=== PATIENT | male | born 1985 | race Caucasian/White ===

== ENCOUNTER 2017-08-28 20:46 | Emergency (ER) | payer BC ==
--- OUTSIDE RECORDS SUMMARY | 2017-08-28 20:48 | XMS REPORT ---
:1985 Author Organization eClinicalWorks Care Team Providers Name Role Phone Daisy Dubon Provider Role Unavailable Allergies, Adverse Reactions, Alerts Substance Reaction Event Type N.K.D.A. Info Not Available Non Drug Allergy Problems Problem Type Condition Code Onset Dates Condition Status Assessment History of kidney stones Z87.442 Active Assessment Hypertension, unspecified type I10 Active Assessment Testicular pain N50.819 Active Assessment Otalgia, left ear H92.02 Active Assessment Bipolar affective disorder, F31.9 Active remission status unspecified Problem Hypertension, unspecified type I10 Active Problem Calculus of kidney and ureter N20.2 Active Problem Bipolar affective disorder, F31.9 Active remission status unspecified Problem Bipolar affective disorder F31.9 Active Problem Acute serous otitis media H65.00 Active Problem Seasonal allergies J30.2 Active Problem Reflux esophagitis K21.0 Active Medications Medication Code Code Instructions Start End Status Dosage System Date Date Amoxicillin [facility] 98846014036 875 MG Orally Active 1 tablet Twice a day Prilosec [facility] 06708103695 2.5 MG Orally Active 4 packets Once a day Bentyl [facility] 88959522788 10 MG Orally Active 2 capsules Four times a day Abilify [facility] 18254088334 10 MG Orally Active 1 tablet in Once a day evening Zyrtec Allergy [facility] 54512647355 10 MG Orally Active 1 tablet Once a day Vitamin D3 [facility] 49553809188 2000 UNIT Active 1 capsule Orally Once a day Lamictal [facility] 17387374572 200 MG Orally Active 1 tablet Twice a day Protonix [facility] 70865903961 40 MG Orally Active 1 tablet Once a day Lisinopril [facility] 90650889744 10 MG Orally Active 1 tablet Once daily Auralgan ND 0 Active not defined Results Name Result Date Reference Range Unit Abnormality Flag Urine Dip Stick ----SP. Gr 1.030 20170525 ----pH 5.5 20170525 ----Ketone Negative 20170525 ----Glucose Negative 20170525 ----Blood Negative 20170525 ----Protein Trace 20170525 ----Nitrite Negative 20170525 ----Leukocytes Negative 20170525 Summary Purpose eClinicalWorks Submission
--- OUTSIDE RECORDS SUMMARY | 2017-08-28 20:48 | XMS REPORT | Clinical Summary ---
:1985 Author Organization [facility] Address [address] [place] [address] Care Team Providers Name Role Phone Daisy Dubon MD Primary Care Provider Allergies Not on File Current Medications Not on file Active Problems Not on file Encounters Date Type Specialty Care Team Description 09/15/2016 Hospital Encounter Radiology Daisy Gomez MD Kidney stones 09/15/2016 Transcribe Orders Access Daisy Gomez MD Kidney stones ( Primary Dx) after 08/27/2016 Social History Tobacco Use Types Packs/Day Years Used Date Never Assessed Sex Assigned at Date Recorded Not on file Last Filed Vital Signs Not on file Plan of Treatment Health Maintenance Due Date Last Done Comments INFLUENZA VACCINE 09/12/2017 Procedures Procedure Name Priority Date/Time Associated Diagnosis Comments XR KUB KIDNEY Routine 09/15/2016 11:55 AM Kidney stones Results for this URETER BLADDER CDT procedure are in the results section. after 08/27/2016 Results XR Kub Kidney Ureter Bladder (09/15/2016 11:55 AM) Narrative Performed At EXAMINATION:XR KUB KIDNEY URETER BLADDER RADIANT CLINICAL HISTORY: 31 years 1985 N20.0 Calculus of kidney, N20.0 COMPARISON:None. IMPRESSION: 1.No definite renal stones appreciated on plain film radiograph. There are several small calcifications over the left pelvis, likely phleboliths. Please correlate with symptomatology. 2.Bowel gas pattern is nonobstructive. Cholecystectomy clips. Likely additional postsurgical changes right lower quadrant. 3.No concerning osseous abnormalities. [facility]-[id number] Procedure Note Interface, Radiology Results Incoming - 09/15/2016 12:11 PM CDT EXAMINATION: XR KUB KIDNEY URETER BLADDER CLINICAL HISTORY: 31 years 1985 N20.0 Calculus of kidney, N20.0 COMPARISON: None. IMPRESSION: 1. No definite renal stones appreciated on plain film radiograph. There are several small calcifications over the left pelvis, likely phleboliths. Please correlate with symptomatology. 2. Bowel gas pattern is nonobstructive. Cholecystectomy clips. Likely additional postsurgical changes right lower quadrant. 3. No concerning osseous abnormalities. [facility]-[id number] Performing Organization Address City/State/Zipcode Phone Number [facility] [address] [place] [address] after 08/27/2016 Insurance Payer Benefit Plan / Group Subscriber ID Type Phone Address [facility] CHOICE/CHOICE + xxxxxxxxx HMO/PPO Home: [address] [phone] [place] [id number]
[2017-08-28] MEDS ORDERED: KETOROLAC 30 MG/ML INJ ONE (21:28)
[2017-08-28] MEDS ORDERED: ONDANSETRON 4 MG/2 ML VIAL ONE (21:28)
[2017-08-28] MEDS ORDERED: NA CHLORIDE 0.9% 1,000 ML ONE (21:29)
[2017-08-28] MEDS ORDERED: FAMOTIDINE 20 MG/2 ML VIAL IV ONE (21:52)
[2017-08-28] MEDS ORDERED: MEPERIDINE HCL 25 MG/0.5 ML ONE (21:52)
[2017-08-28 22:03] LABS: Absolute Lymphocytes (CBC) 1.8 K/uL (0.7-4.9); Absolute Monocytes 0.7 K/uL (0.1-1.3); Absolute Neutrophil 10.8 K/uL (1.8-8.0); Albumin 4.1 g/dL (3.4-5.0); Basophils % 0.3 % (0-1.3); Bilirubin Direct 0.1 mg/dL (0-0.2); Bilirubin Total 0.5 mg/dL (0.2-1.0); Eosinophils % 1.6 % (0-4.4); Hematocrit 44.5 % (39.6-49.0); Lymphocytes % 13.4 % (15.3-44.8); MCH 28.8 pg (27.0-35.0); MCV 84.8 fL (80-100); MPV 6.9 fL (7.6-11.3); Monocytes % 5.4 % (3.3-12.3); Potassium 3.8 mmol/L (3.5-5.1); Protein, Total 7.7 g/dL (6.4-8.2); RBC Red Blood Cell Count 5.25 M/uL (4.33-5.43)
[2017-08-28 22:20] LABS: Urine Blood NEGATIVE (NEG); Urine Glucose NEGATIVE (NEG); Urine Protein 1+ (NEG); Urine Specific Gravity >1.030 (1.005-1.030); Urine pH 6.5 (5.0-7.0)
--- NOTE | 2017-08-28 23:45 | EDPHYS ---
Physician Documentation [facility] Name: Roland Cueto Jr Age: 32 yrs Sex: Male : 1985 Arrival Date: 08/28/2017 Time: 20:47 Bed 17 Private MD: Daisy Dubon ED Physician Trino Barry HPI: 08/28 22:14 This 32 yrs old Male presents to ER via Ambulatory with complaints of pm1 Abdominal Pain. 22:14 The patient presents with abdominal pain in the epigastric area. Onset: The pm1 symptoms/episode began/occurred today, at 16:30. The symptoms do not radiate. Associated signs and symptoms: Pertinent positives: nausea and vomiting, Pertinent negatives: chest pain, diarrhea, dysuria, fever, shortness of breath, testicular pain. The symptoms are described as dull, sharp. Modifying factors: The symptoms are alleviated by nothing, the symptoms are aggravated by food, Water. Severity of pain: in the emergency department the pain is actually worse. The patient has not experienced similar symptoms in the past. The patient has not recently seen a physician. Historical: - Allergies: 21:05 Morphine; bb - Home Meds: 21:11 Lamictal 400 mg daily Oral [Active]; bb - PMHx: 21:05 Bipolar disorder; Gastroenteritis; Kidney stones; bb - PSHx: 21:05 Cholecystectomy; Appendectomy; bb - Immunization history:: Adult Immunizations up to date. - Social history:: Smoking status: Patient/guardian denies using tobacco, Patient/guardian denies using alcohol, street drugs. - Ebola Screening: : No symptoms or risks identified at this time. ROS: 22:14 Constitutional: Negative for fever, chills, and weight loss, Eyes: Negative for injury, pm1 pain, redness, and discharge, ENT: Negative for injury, pain, and discharge, Neck: Negative for injury, pain, and swelling, Cardiovascular: Negative for chest pain, palpitations, and edema, Respiratory: Negative for shortness of breath, cough, wheezing, and pleuritic chest pain. 22:14 Back: Negative for injury and pain, : Negative for injury, bleeding, discharge, and swelling, MS/Extremity: Negative for injury and deformity, Skin: Negative for injury, rash, and discoloration, Neuro: Negative for headache, weakness, numbness, tingling, and seizure. 22:14 Abdomen/GI: Positive for abdominal pain, nausea and vomiting, Negative for diarrhea, constipation. Exam: 22:14 Constitutional: This is a well developed, well nourished patient who is awake, alert, pm1 and in no acute distress. Head/Face: Normocephalic, atraumatic. Neck: Trachea midline, no thyromegaly or masses palpated, and no cervical lymphadenopathy. Supple, full range of motion without nuchal rigidity, or vertebral point tenderness. No Meningismus. Chest/axilla: Normal chest wall appearance and motion. Nontender with no deformity. No lesions are appreciated. Cardiovascular: Regular rate and rhythm with a normal S1 and S2. No gallops, murmurs, or rubs. Normal PMI, no JVD. No pulse deficits. Respiratory: Lungs have equal breath sounds bilaterally, clear to auscultation and percussion. No rales, rhonchi or wheezes noted. No increased work of breathing, no retractions or nasal flaring. 22:14 Back: No spinal tenderness. No costovertebral tenderness. Full range of motion. Skin: Warm, dry with normal turgor. Normal color with no rashes, no lesions, and no evidence of cellulitis. MS/ Extremity: Pulses equal, no cyanosis. Neurovascular intact. Full, normal range of motion. 22:14 Abdomen/GI: Inspection: abdomen appears normal, Bowel sounds: normal, Palpation: soft, mild abdominal tenderness, in the epigastric area, mass, is not appreciated, rebound tenderness, is not appreciated. 22:14 Neuro: Orientation: is normal, Motor: is normal, moves all fours. Vital Signs: 21:05 BP 137 / 96; Pulse 85; Resp 16 S; Temp 98(O); Pulse Ox 97% on R/A; Weight 102.06 kg bb (R); Height 5 ft. 11 in. (180.34 cm) (R); Pain 9/10; 21:58 BP 135 / 86; Pulse 69; Resp 16; Pulse Ox 96% on R/A; Pain 2/10; ak1 23:19 BP 129 / 76; Pulse 76; Resp 16; Pulse Ox 98% on R/A; Pain 2/10; ak1 21:05 Body Mass Index 31.38 (102.06 kg, 180.34 cm) bb MDM: 20:53 Patient medically screened. pm1 23:39 Data reviewed: vital signs. Data interpreted: Pulse oximetry: on room air is 98 %. pm1 Interpretation: normal. 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 08/28 21:24 Order name: Basic Metabolic Panel; Complete Time: 23:21 pm1 08/28 21:24 Order name: CBC with Diff; Complete Time: 23:21 pm1 08/28 21:24 Order name: Hepatic Function; Complete Time: 23:21 pm1 08/28 21:24 Order name: Lipase; Complete Time: 23:21 pm1 08/28 21:59 Order name: Urine Dipstick--Ancillary (enter results) ks 08/28 22:00 Order name: Urine Dipstick-Ancillary; Complete Time: 23:21 [facility] 08/28 21:24 Order name: IV Saline Lock; Complete Time: 21:37 pm1 08/28 21:44 Order name: CT Abd/Pelvis - W/Contrast: IV contrast only [facility] 08/28 21:24 Order name: Labs collected and sent; Complete Time: 21:37 pm1 08/28 21:24 Order name: Urine Dipstick-Ancillary (obtain specimen); Complete Time: 23:09 pm1 Administered Medications: 21:36 Drug: Zofran 4 mg Route: IVP; Site: right antecubital; ak1 21:46 Follow up: Response: No adverse reaction ak1 21:37 Drug: TORadol 30 mg Route: IVP; Site: right antecubital; ak1 21:46 Follow up: Response: No adverse reaction ak1 21:37 Drug: NS 0.9% 1000 ml Route: IV; Rate: 1000 ml; Site: right antecubital; ak1 22:23 Follow up: IV Status: Completed infusion ak1 23:52 Follow up: IV Status: Completed infusion ak1 21:52 Drug: Pepcid 20 mg Route: IVP; Site: right antecubital; ak1 22:22 Follow up: Response: No adverse reaction ak1 21:52 Drug: Demerol 25 mg Route: IVP; Site: right antecubital; ak1 22:22 Follow up: Response: No adverse reaction ak1 23:48 Drug: GI Cocktail without - (Maalox Suspension 30 ml, Lidocaine Liquid 2 % 15 ak1 ml) Route: PO; 23:48 Follow up: Response: No adverse reaction ak1 Disposition: 08/29 00:21 Co-signature as Attending Physician, Trino Barry MD. pkcris Disposition: 08/28/17 23:44 Discharged to Home. Impression: Unspecified abdominal pain, Nausea and vomiting. - Condition is Stable. - Discharge Instructions: Abdominal Pain, Adult, Nausea and Vomiting. - Prescriptions for Bentyl 20 mg Oral Tablet - take 1 tablet by ORAL route every 6 hours As needed; 20 tablet. Pepcid 20 mg Oral Tablet - take 1 tablet by ORAL route every 12 hours for 10 days; 20 tablet. Zofran 4 mg Oral Tablet - take 1 tablet by ORAL route every 12 hours As needed; 20 tablet. - Medication Reconciliation Form, Thank You Letter, Antibiotic Education, Prescription Opioid Use form. - Follow up: Emergency Department; When: As needed; Reason: Worsening of condition. Follow up: Luis Doherty; When: 2 - 3 days; Reason: Recheck today's complaints, Continuance of care, Re-evaluation by your physician. - Problem is new. - Symptoms have improved. Signatures: Dispatcher [employer] EDTrino Davis MD MD pkl Samira Zaragoza RN Darlene Maxwell RN RN lp1 Cheryl Mullins RN RN ak1 Karl Meyer, WATER VALVE MECHANIC WATER VALVE MECHANIC pm1 Corrections: (The following items were deleted from the chart) 00:07 08/28 23:44 08/28/2017 23:44 Discharged to Home. Impression: Unspecified abdominal lp1 pain; Nausea and vomiting. Condition is Stable. Forms are Medication Reconciliation Form, Thank You Letter, Antibiotic Education, Prescription Opioid Use. Follow up: Emergency Department; When: As needed; Reason: Worsening of condition. Follow up: Luis Doherty; When: 2 - 3 days; Reason: Recheck today's complaints, Continuance of care, Re-evaluation by your physician. Problem is new. Symptoms have improved. pm1
--- NOTE | 2017-08-28 23:45 | ER ---
Nurse's Notes [facility] Name: Roland Cueto Jr Age: 32 yrs Sex: Male : 1985 Arrival Date: 08/28/2017 Time: 20:47 Bed 17 Private MD: Daisy Dubon Diagnosis: Unspecified abdominal pain;Nausea and vomiting Presentation: 08/28 21:02 Presenting complaint: Patient states: at approx 1630 today he started feeling bb epigastric pain which was sharp at first then went away now has dull pain intermittently and is vomiting denies diarrhea or fever. Transition of care: patient was not received from another setting of care. Onset of symptoms was August 28, 2017 at 16:30. Risk Assessment: Do you want to hurt yourself or someone else? Patient reports no desire to harm self or others. Initial Sepsis Screen: Does the patient meet any 2 criteria? No. Patient's initial sepsis screen is negative. Does the patient have a suspected source of infection? No. Patient's initial sepsis screen is negative. Care prior to arrival: None. 21:02 Method Of Arrival: Ambulatory bb 21:02 Acuity: ALEX 3 bb Historical: - Allergies: 21:05 Morphine; bb - Home Meds: 21:11 Lamictal 400 mg daily Oral [Active]; bb - PMHx: 21:05 Bipolar disorder; Gastroenteritis; Kidney stones; bb - PSHx: 21:05 Cholecystectomy; Appendectomy; bb - Immunization history:: Adult Immunizations up to date. - Social history:: Smoking status: Patient/guardian denies using tobacco, Patient/guardian denies using alcohol, street drugs. - Ebola Screening: : No symptoms or risks identified at this time. Screenin:22 Abuse screen: Denies threats or abuse. Denies injuries from another. Nutritional ak1 screening: No deficits noted. Tuberculosis screening: No symptoms or risk factors identified. Fall Risk None identified. Assessment: 21:22 General: Appears uncomfortable, Behavior is calm, cooperative. Pain: Complains of pain ak1 in epigastric area. Neuro: No deficits noted. Cardiovascular: No deficits noted. Respiratory: No deficits noted. GI: Bowel sounds present X 4 quads. Abd is soft X 4 quads Abdomen is tender to palpation in epigastric area. : No signs and/or symptoms were reported regarding the genitourinary system. EENT: No signs and/or symptoms were reported regarding the EENT system. Derm: No signs and/or symptoms reported regarding the dermatologic system. Musculoskeletal: No signs and/or symptoms reported regarding the musculoskeletal system. 23:23 Reassessment: Patient appears in no apparent distress at this time. Patient and/or ak1 family updated on plan of care and expected duration. Pain level reassessed. Patient is alert, oriented x 3, equal unlabored respirations, skin warm/dry/pink. Patient states symptoms have improved. Vital Signs: 21:05 BP 137 / 96; Pulse 85; Resp 16 S; Temp 98(O); Pulse Ox 97% on R/A; Weight 102.06 kg bb (R); Height 5 ft. 11 in. (180.34 cm) (R); Pain 9/10; 21:58 BP 135 / 86; Pulse 69; Resp 16; Pulse Ox 96% on R/A; Pain 2/10; ak1 23:19 BP 129 / 76; Pulse 76; Resp 16; Pulse Ox 98% on R/A; Pain 2/10; ak1 21:05 Body Mass Index 31.38 (102.06 kg, 180.34 cm) ED Course: 20:47 Patient arrived in ED. ds1 20:47 Gumaro Lamb MD is Private Physician. ds1 20:47 Daisy Dubon MD is Private Physician. ds1 20:53 Karl Meyer NP is PHCP. pm1 20:53 Trino Barry MD is Attending Physician. pm1 20:56 Cheryl Mullins, FABY is Primary Nurse. ak1 21:04 Triage completed. bb 21:05 Arm band placed on Patient placed in an exam room, on a stretcher, on pulse oximetry. bb Family accompanied patient. 21:22 Patient has correct armband on for positive identification. Bed in low position. Call ak1 light in reach. Side rails up X 1. Adult w/ patient. Pulse ox on. NIBP on. 21:37 Inserted saline lock: 20 gauge in right antecubital area, using aseptic technique. ak1 Blood collected. 21:47 Radiology exam delayed due to lab results not completed at this time. (BUN/Creatinine). nj 22:01 No provider procedures requiring assistance completed. ak1 22:[address] via wheelchair. nj 22:32 CT completed. Patient tolerated procedure well. Patient moved back from CT. nj 22:35 CT Abd/Pelvis - W/Contrast: IV contrast only In Process Unspecified. EDMS 23:44 Luis Doherty MD is Referral Physician. pm1 23:50 IV discontinued, intact, bleeding controlled, No redness/swelling at site. ak1 Administered Medications: 21:36 Drug: Zofran 4 mg Route: IVP; Site: right antecubital; ak1 21:46 Follow up: Response: No adverse reaction ak1 21:37 Drug: TORadol 30 mg Route: IVP; Site: right antecubital; ak1 21:46 Follow up: Response: No adverse reaction ak1 21:37 Drug: NS 0.9% 1000 ml Route: IV; Rate: 1000 ml; Site: right antecubital; ak1 22:23 Follow up: IV Status: Completed infusion ak1 23:52 Follow up: IV Status: Completed infusion ak1 21:52 Drug: Pepcid 20 mg Route: IVP; Site: right antecubital; ak1 22:22 Follow up: Response: No adverse reaction ak1 21:52 Drug: Demerol 25 mg Route: IVP; Site: right antecubital; ak1 22:22 Follow up: Response: No adverse reaction ak1 23:48 Drug: GI Cocktail without - (Maalox Suspension 30 ml, Lidocaine Liquid 2 % 15 ak1 ml) Route: PO; 23:48 Follow up: Response: No adverse reaction ak1 Outcome: 23:44 Discharge ordered by . pm1 08/29 00:06 Discharged to home ambulatory, with significant other. lp1 Condition: good Discharge instructions given to patient, Instructed on discharge instructions, follow up and referral plans. medication usage, Demonstrated understanding of instructions, follow-up care, medications, Prescriptions given X 3. 00:07 Patient left the ED. lp1 Signatures: Dispatcher [employer] EDNH Celsa Beckett Samira Gibbs RN RN bb Pena, Laura, RN RN lp1 Cheryl Mullins RN RN ak1 Karl Meyer, PROCESS MANAGER PROCESS MANAGER pm1 Felix Moraes
[2017-08-28] MEDS ORDERED: MAGNE/ALUM HYDROXD 30 ML UCUP ONE (23:48)
[2017-08-28] MEDS ORDERED: LIDOCAINE VISCOUS 2% SOLN 15 ML UDC ONE (23:48)
[2017-08-29 00:13] VITALS: TEMP 98
[2017-08-29 00:15] VITALS: BP 129/76; O2SAT 98
--- NOTE | 2017-08-29 06:39 | RAD REPORT ---
EXAM DESCRIPTION: CT - Abdomen Pelvis W Contrast - 08/28/2017 10:35 pm CLINICAL HISTORY: Abdominal pain, epigastric pain, vomiting A preliminary written report was provided at the time of the study, and the report was reviewed prio r to final dictation. COMPARISON: CT study May 2015 TECHNIQUE: Biphasic, helical CT imaging of the abdomen and pelvis was performed following 100 ml non -ionic IV contrast. No oral contrast was given. All CT scans are performed using dose optimization technique as appropriate and may include automated exposure control or mA/KV adjustment according to patient size. FINDINGS: No suspicious findings in the lung bases. The liver, spleen, and pancreas show no suspicious findings. Cholecystectomy clips are present. No bi liary tree dilatation. Symmetric renal function is seen with no hydronephrosis or suspicious renal mass. No pyelonephritis o r acute renal parenchymal process. No urinary bladder abnormality. Bladder is contracted limiting ass essment. No gastric dilatation or gastric wall thickening. Stomach is fluid filled but not dilated. Wagner of t he gastric antrum are questionably edematous. A few minimally prominent small bowel loops are present in the upper abdomen. Minimal diverticulosis without diverticulitis. Clips in the right abdomen may be from prior appendectomy. No free air, free fluid or inflammatory stranding. No hernia, mass or bu lky lymphadenopathy. No adrenal abnormality. No suspicious bony findings. IMPRESSION: No obstruction, free air or surgically emergent finding. Minimal prominence of the gastric antrum and proximal small bowel loops could indicated nonspecific g astritis/ enteritis. No significant change from comparison.
== END 2017-08-29 00:07 | disposition home or self-care (01) ==
LOC: ER 20:46
DX: R11.2 Nausea with vomiting, unspecified (principal); Z88.5 Allergy status to narcotic agent
CPT/HCPCS: 36415; 74177; 80048; 80076; 81003; 83690; 85025; 96361; 96374; 96375; 99284; J2175; J2405; J7030; Q9967

== ENCOUNTER 2018-05-23 08:30 | Emergency (ER) | payer BC ==
--- OUTSIDE RECORDS SUMMARY | 2018-05-23 08:32 | XMS REPORT ---
[...] End Status Dosage System Date Date Amoxicillin [facility] 89926117269 875 MG Orally Active 1 tablet Twice a day Prilosec [facility] 44497534265 2.5 MG Orally Active 4 packets Once a day Bentyl [facility] 13383619757 10 MG Orally Active 2 capsules Four times a day Abilify [facility] 71224625184 10 MG Orally Active 1 tablet in Once a day evening Zyrtec Allergy [facility] 08213951246 10 MG Orally Active 1 tablet Once a day Vitamin D3 [facility] 00564338571 2000 UNIT Active 1 capsule Orally Once a day Lamictal [facility] 21510575675 200 MG Orally Active 1 tablet Twice a day Protonix [facility] 83810827122 40 MG Orally Active 1 tablet Once a day Lisinopril [facility] 98867710650 10 MG Orally Active 1 tablet Once daily Auralgan ND 0 Active not defined Results Name Result Date Reference Range Unit Abnormality Flag Urine Dip Stick ----SP. Gr 1.030 20170525 ----pH 5.5 20170525 ----Ketone Negative 20170525 ----Glucose Negative 20170525 ----Blood Negative 20170525 ----Protein Trace 20170525 ----Nitrite Negative 20170525 ----Leukocytes Negative 20170525 Summary Purpose eClinicalWorks Submission
--- OUTSIDE RECORDS SUMMARY | 2018-05-23 08:32 | XMS REPORT ---
:1985 Author Organization e[employer]Works Care Team Providers Name Role Phone Jagdish Daisy Provider Role Unavailable Allergies, Adverse Reactions, Alerts Substance Reaction Event Type N.K.D.A. Info Not Available Non Drug Allergy Problems Problem Type Condition Code Onset Dates Condition Status Assessment Bipolar affective disorder, F31.9 Active remission status unspecified Assessment Hypertension, unspecified type I10 Active Problem Hypertension, unspecified type I10 Active Problem Calculus of kidney and ureter N20.2 Active Problem Bipolar affective disorder, F31.9 Active remission status unspecified Problem Bipolar affective disorder F31.9 Active Problem Acute serous otitis media H65.00 Active Problem Seasonal allergies J30.2 Active Problem Reflux esophagitis K21.0 Active Medications Medication Code Code Instructions Start End Status Dosage System Date Date Lisinopril [facility] 89936135820 10 MG Orally Active 1 tablet Once daily Vitamin D3 [facility] 84173497398 2000 UNIT Active 1 capsule Orally Once a day Bentyl [facility] 56641315030 10 MG Orally Active 2 capsules Four times a day Amoxicillin [facility] 74252011943 875 MG Orally Active 1 tablet Twice a day Protonix [facility] 19726222325 40 MG Orally Active 1 tablet Once a day Prilosec [facility] 94242821193 2.5 MG Orally Active 4 packets Once a day Abilify [facility] 19198256376 10 MG Orally Active 1 tablet in Once a day evening Lamictal [facility] 82673360815 200 MG Orally Active 1 tablet Twice a day Auralgan ND 0 Active not defined Zyrtec Allergy [facility] 01170725526 10 MG Orally Active 1 tablet Once a day Results No Known Results Summary Purpose eClinicalWorks Submission
--- OUTSIDE RECORDS SUMMARY | 2018-05-23 08:32 | XMS REPORT | Clinical Summary ---
:1985 Author Organization [facility] Address [address] [place] [address] Care Team Providers Name Role Phone Daisy Dubon MD Primary Care Provider Allergies Not on File Medications Not on file Active Problems Not on file Social History Tobacco Use Types Packs/Day Years Used Date Never Assessed Sex Assigned at Date Recorded Not on file Job Start Date Occupation Industry Not on file Not on file Not on file Travel History Travel Start Travel End No recent travel history available. Last Filed Vital Signs Not on file Plan of Treatment Health Maintenance Due Date Last Done Comments INFLUENZA VACCINE 09/12/2018 Results Not on fileafter 05/22/2017 Insurance Payer Benefit Plan / Group Subscriber ID Type Phone Address [facility] CHOICE/CHOICE + xxxxxxxxx HMO/PPO Advance Directives Patient has advance care planning documents on file. For more information, please contact:[facility] [place] [address]
--- OUTSIDE RECORDS SUMMARY | 2018-05-23 08:32 | XMS REPORT ---
:1985 [facility] Address [address] [place] [address] [address] [place] [address] Care Team Providers Name Role Phone Unavailable Unavailable Unavailable Problems This patient has no known problems. Allergies, Adverse Reactions, Alerts This patient has no known allergies or adverse reactions. Medications This patient has no known medications.
--- OUTSIDE RECORDS SUMMARY | 2018-05-23 08:32 | XMS REPORT ---
:1985 Author Organization [employer] Care Team Providers Name Role Phone Daisy Dubon Provider Role Unavailable Allergies, Adverse Reactions, Alerts Substance Reaction Event Type N.K.D.A. Info Not Available Non Drug Allergy Problems Problem Type Condition Code Onset Dates Condition Status Assessment Bipolar affective disorder, F31.9 Active remission status unspecified Assessment Acute conjunctivitis of right eye, H10.31 Active unspecified acute conjunctivitis type Problem Hypertension, unspecified type I10 Active Problem Calculus of kidney and ureter N20.2 Active Problem Bipolar affective disorder, F31.9 Active remission status unspecified Problem Bipolar affective disorder F31.9 Active Problem Acute serous otitis media H65.00 Active Problem Seasonal allergies J30.2 Active Problem Reflux esophagitis K21.0 Active Medications Medication Code Code Instructions Start End Status Dosage System Date Date [facility] 20715885414 10 MG Orally Active 1 tablet in Once a day evening Lisinopril ND 30083421838 10 MG Orally Active 1 tablet Once daily Zyrtec Allergy ND 92311537841 10 MG Orally Active 1 tablet Once a day Prilosec [facility] 25124080403 2.5 MG Orally Active 4 packets Once a day Ciprofloxacin [facility] 26797308354 0.3 % Oct 05, Oct 12, Active as directed HCl Ophthalmic 2017 drops in affected eye q2h while awake for 2 days; then 2 drops q4h while awake for 5 days Amoxicillin ND 03083011044 875 MG Orally Active 1 tablet Twice a day Vitamin D3 ND 82979024146 2000 UNIT Active 1 capsule Orally Once a day Protonix ND 52160849701 40 MG Orally Active 1 tablet Once a day Lamictal ND 77442286221 200 MG Orally Active 1 tablet Twice a day Auralgan NDC 0 Active not defined Bentyl ND 02319411519 10 MG Orally Active 2 capsules Four times a day Results No Known Results Summary Purpose eClinicalWorks Submission
[2018-05-23] MEDS ORDERED: KETOROLAC 30 MG/ML INJ ONE (09:00)
[2018-05-23] MEDS ORDERED: ONDANSETRON 4 MG/2 ML VIAL ONE (09:00)
[2018-05-23] MEDS ORDERED: NA CHLORIDE 0.9% 1,000 ML ONE (09:00)
[2018-05-23 09:01] LABS: Absolute Lymphocytes (CBC) 1.6 K/uL (0.7-4.9); Absolute Monocytes 0.5 K/uL (0.1-1.3); Absolute Neutrophil 6.2 K/uL (1.8-8.0); Basophils % 0.4 % (0-1.3); Eosinophils % 3.5 % (0-4.4); Hematocrit 47.4 % (39.6-49.0); Lymphocytes % 18.5 % (15.3-44.8); MPV 6.9 fL (7.6-11.3); Monocytes % 5.6 % (3.3-12.3); RBC Red Blood Cell Count 5.67 M/uL (4.33-5.43)
[2018-05-23 09:17] LABS: ALT/SGPT 32 U/L (12-78); AST/SGOT 18 U/L (15-37); Albumin 3.9 g/dL (3.4-5.0); Alkaline Phosphatase 85 U/L (45-117); BUN Blood Urea Nitrogen 11 mg/dL (7-18); Bicarbonate 26 mmol/L (21-32); Bilirubin Direct 0.1 mg/dL (0-0.2); Bilirubin Total 0.6 mg/dL (0.2-1.0); Glucose Level 99 mg/dL (74-106); Lipase 92 U/L (73-393); Potassium 3.8 mmol/L (3.5-5.1); Protein, Total 7.6 g/dL (6.4-8.2); Sodium Level 142 mmol/L (136-145)
[2018-05-23] MEDS ORDERED: FENTANYL CITR 100 MCG/2 ML ONE (09:37)
[2018-05-23 09:41] LABS: Urine Blood NEGATIVE (NEG); Urine Glucose NEGATIVE (NEG); Urine Protein 1+ (NEG); Urine pH 5.5 (5.0-7.0)
[2018-05-23 09:45] LABS: Urine Bacteria NONE SEEN /HPF (NONE SEEN); Urine Culture Reflex Order NOT NEEDED; Urine Mucus MOD /HPF (NONE SEEN); Urine RBC <5 /HPF (NONE SEEN)
--- NOTE | 2018-05-23 09:47 | RAD REPORT ---
EXAM DESCRIPTION: CT - Stone Protocol - 05/23/2018 9:01 am CLINICAL HISTORY: Flank pain. FLANK PAIN COMPARISON: Abdomen Pelvis W Contrast dated 08/28/2017 TECHNIQUE: Axial images were obtained without oral or IV contrast. Lack of contrast limits solid org an and vascular assessment. The [id number] spans the entirety of the system partially obscuring uppermost abdomen and lung bases. Coronal reformatted images were obtained and reviewed. All CT scans are performed using dose optimization technique as appropriate and may include automated exposure control or mA/KV adjustment according to patient size. FINDINGS: The lower lung cespedes are clear. Imaged portions of the liver and spleen show no suspicious findings on non-contrast imaging. Cholecys tectomy The pancreas and adrenal glands are normal. No pathologic lymphadenopathy in the abdomen or pelvis. No urinary tract stones or obstructive uropathy. No bowel obstruction, free air, free fluid or abscess. Appendectomy. No significant bony abnormality. IMPRESSION: No urinary tract stones or obstructive uropathy.
--- NOTE | 2018-05-23 09:54 | ER ---
Nurse's Notes [facility] Name: Roland Cueto Jr Age: 33 yrs Sex: Male : 1985 Arrival Date: 05/23/2018 Time: 08:32 Bed 13 Private MD: Diagnosis: Unspecified abdominal pain;Diarrhea, unspecified Presentation: 05/23 08:37 Initial Sepsis Screen: Does the patient meet any 2 criteria? No. Patient's initial rb1 sepsis screen is negative. Does the patient have a suspected source of infection? No. Patient's initial sepsis screen is negative. 08:40 Presenting complaint: Patient states: RIGHT flank pain that radiates to RLQ, nausea, hb and diarrhea x 2 days. Transition of care: patient was not received from another setting of care. Onset of symptoms was May 22, 2018. Risk Assessment: Do you want to hurt yourself or someone else? Patient reports no desire to harm self or others. Care prior to arrival: None. 08:40 Method Of Arrival: Ambulatory hb 08:40 Acuity: ALEX 3 hb Historical: - Allergies: 08:42 Morphine; "makes me mean"; hb - Home Meds: 08:42 Lamictal 400 mg daily Oral [Active]; hb - PMHx: 08:42 Bipolar disorder; Gastroenteritis; Kidney stones; hb - PSHx: 08:42 Cholecystectomy; Appendectomy; hb - Immunization history:: Adult Immunizations up to date. - Social history:: Smoking status: Patient/guardian denies using tobacco. - Ebola Screening: : No symptoms or risks identified at this time. Screenin:43 Abuse screen: Denies threats or abuse. Denies injuries from another. Nutritional hb screening: No deficits noted. Tuberculosis screening: No symptoms or risk factors identified. Fall Risk None identified. Assessment: 08:37 General: Appears uncomfortable, Behavior is calm, cooperative, Denies fever. Pain: rb1 Complains of pain in right flank Pain radiates to right lower quadrant Pain currently is 10 out of 10 on a pain scale. Neuro: Level of Consciousness is awake, alert, obeys commands, Oriented to person, place, time, situation. Cardiovascular: Capillary refill < 3 seconds is brisk in bilateral fingers. Respiratory: Airway is patent Respiratory effort is even, unlabored, Respiratory pattern is regular, symmetrical. GI: Bowel sounds present X 4 quads. Abd is soft Abdomen is tender to palpation in right lower quadrant Reports diarrhea, nausea. : No signs and/or symptoms were reported regarding the genitourinary system. Derm: Skin is pink, warm \\T\\ dry. Musculoskeletal: Range of motion: intact in all extremities. 08:58 Reassessment: Pt. went to CT. rb1 09:34 Reassessment: Patient appears in no apparent distress at this time. Patient and/or rb1 family updated on plan of care and expected duration. Pain level reassessed. Patient is alert, oriented x 3, equal unlabored respirations, skin warm/dry/pink. 10:15 Reassessment: Patient appears in no apparent distress at this time. No changes from rb1 previously documented assessment. Vital Signs: 08:40 BP 137 / 101; Pulse 82; Resp 16; Temp 98.3(TE); Pulse Ox 98% on R/A; Pain 7/10; hb 09:40 BP 129 / 85; Pulse 74; Resp 17; Pulse Ox 96% on R/A; Pain 10/10; rb1 10:24 BP 119 / 78; Pulse 65; Resp 17; Pulse Ox 100% on R/A; rb1 ED Course: 08:32 Patient arrived in ED. tw3 08:36 Dank Sotomayor PA is PHCP. cp 08:36 Piyush Kraus MD is Attending Physician. cp 08:37 Patient has correct armband on for positive identification. Bed in low position. Call rb1 light in reach. Side rails up X 1. Pulse ox on. NIBP on. 08:41 Triage completed. hb 08:43 Arm band placed on. hb 08:46 Gema Dao, RN is Primary Nurse. rb1 08:49 Initial lab(s) drawn, by sd, sent to lab. Inserted saline lock: 20 gauge in right dh3 antecubital area, using aseptic technique. Blood collected. 09:00 CT completed. Patient tolerated procedure well. Patient moved to CT via wheelchair. ls3 Patient moved back from CT. 09:02 CT Stone Protocol In Process Unspecified. EDMS 09:53 Gumaro Aguirre MD is Referral Physician. cp 10:23 No provider procedures requiring assistance completed. IV discontinued, intact, rb1 bleeding controlled, No redness/swelling at site. Pressure dressing applied. Administered Medications: 08:57 Drug: NS 0.9% 1000 ml Route: IV; Rate: 1 bolus; Site: right antecubital; rb1 10:03 Follow up: IV Status: Completed infusion rb1 08:57 Drug: Zofran 4 mg Route: IVP; Site: right antecubital; rb1 09:10 Follow up: Response: No adverse reaction; Nausea is decreased rb1 08:57 Drug: TORadol 30 mg Route: IVP; Site: right antecubital; rb1 09:10 Follow up: Response: No adverse reaction; Pain is unchanged, physician notified rb1 09:40 Drug: fentaNYL (PF) 25 mcg Route: IVP; Site: right antecubital; rb1 10:00 Follow up: Response: No adverse reaction; Pain is decreased rb1 Outcome: 09:53 Discharge ordered by . cp 10:23 Patient left the ED. rb1 10:23 Discharged to home ambulatory, with family. rb1 10:23 Condition: stable 10:23 Discharge instructions given to patient, Instructed on discharge instructions, follow up and referral plans. medication usage, Demonstrated understanding of instructions, follow-up care, medications, Prescriptions given X 2. Signatures: Dispatcher [employer] EDMS Dank Sotomayor PA PA cp Barber, Rebecca, RN RN rb1 Annelise Gonzalez RN RN Nancy Silva 3 Yesika Herrera 3 Hossein Mccauley ls3 Corrections: (The following items were deleted from the chart) 10:07 08:37 GI: Bowel sounds present X 4 quads. Abd is soft Abdomen is tender to palpation in rb1 right lower quadrant Reports nausea, rb1
--- NOTE | 2018-05-23 09:55 | EDPHYS ---
Physician Documentation [facility] Name: Roland Cueto Jr Age: 33 yrs Sex: Male : 1985 Arrival Date: 05/23/2018 Time: 08:32 Bed 13 Private MD: ED Physician Piyush Kraus HPI: 05/23 08:40 This 33 yrs old Male presents to ER via Unassigned with complaints of cp Possible Kidney Stone. 08:40 The patient complains of pain in the right. The pain radiates to the back and abdomen. cp Onset: The symptoms/episode began/occurred yesterday. Associated signs and symptoms: Pertinent positives: nausea, Pertinent negatives: fever, pain radiating to the lower extremities, vomiting. Severity of pain: in the emergency department the pain is a 8 / 10. Historical: - Allergies: 08:42 Morphine; "makes me mean"; hb - Home Meds: 08:42 Lamictal 400 mg daily Oral [Active]; hb - PMHx: 08:42 Bipolar disorder; Gastroenteritis; Kidney stones; hb - PSHx: 08:42 Cholecystectomy; Appendectomy; hb - Immunization history:: Adult Immunizations up to date. - Social history:: Smoking status: Patient/guardian denies using tobacco. - Ebola Screening: : No symptoms or risks identified at this time. ROS: 08:41 Eyes: Negative for injury, pain, redness, and discharge. cp 08:41 Constitutional: Negative for body aches, chills, fever, poor PO intake. 08:41 ENT: Negative for drainage from ear(s), ear pain, sore throat, difficulty swallowing, difficulty handling secretions. 08:41 Cardiovascular: Negative for chest pain, edema, palpitations. 08:41 Respiratory: Negative for cough, shortness of breath, wheezing. 08:41 Back: Positive for flank pain, on the right. 08:41 Skin: Negative for burn. 08:41 Neuro: Negative for altered mental status, headache, weakness. 08:42 Abdomen/GI: Positive for abdominal pain, nausea, diarrhea, Negative for vomiting, cp constipation, black/tarry stool, rectal bleeding. 08:42 All other systems are negative. Exam: 08:42 Head/Face: Normocephalic, atraumatic. cp 08:42 Constitutional: The patient appears in no acute distress, alert, awake, non-toxic, well developed, well nourished, uncomfortable, appears in pain 08:42 Eyes: Periorbital structures: appear normal, Conjunctiva: normal, no exudate, no cp injection, Sclera: no appreciated abnormality, Lids and lashes: appear normal, bilaterally. 08:42 ENT: External ear(s): are unremarkable, Nose: is normal, Mouth: is normal. 08:42 Chest/axilla: Inspection: normal, Palpation: is normal, no crepitus, no tenderness. 08:42 Cardiovascular: Rate: normal, Rhythm: regular. 08:42 Respiratory: the patient does not display signs of respiratory distress, Respirations: normal, no use of accessory muscles, no retractions, no splinting, no tachypnea, labored breathing, is not present, Breath sounds: are clear throughout, no decreased breath sounds, no stridor, no wheezing. 08:42 Abdomen/GI: Inspection: abdomen appears normal, Bowel sounds: active, all quadrants, Palpation: soft, in all quadrants, moderate abdominal tenderness, in the anterior aspect of right lateral abdomen, posterior aspect of right lateral abdomen, right upper quadrant and right lower quadrant, rebound tenderness, is not appreciated, involuntary guarding, is not appreciated. 08:42 Back: pain, that is moderate, of the right mid back. Vital Signs: 08:40 BP 137 / 101; Pulse 82; Resp 16; Temp 98.3(TE); Pulse Ox 98% on R/A; Pain 7/10; hb 09:40 BP 129 / 85; Pulse 74; Resp 17; Pulse Ox 96% on R/A; Pain 10/10; rb1 10:24 BP 119 / 78; Pulse 65; Resp 17; Pulse Ox 100% on R/A; rb1 MDM: 08:37 Patient medically screened. cp 09:00 Differential diagnosis: nephrolithiasis, pyelonephritis, UTI, pancreatitis, ruptured cp AAA, dissecting AAA. 09:52 Data reviewed: vital signs, nurses notes, lab test result(s), radiologic studies, CT cp scan. 09:52 Counseling: I had a detailed discussion with the patient and/or guardian regarding: the cp historical points, exam findings, and any diagnostic results supporting the discharge/admit diagnosis, lab results, radiology results, to return to the emergency department if symptoms worsen or persist or if there are any questions or concerns that arise at home. Response to treatment: Improved. CT abdomen negative for acute findings, and as a result, I will discharge patient. 05/23 08:39 Order name: Basic Metabolic Panel; Complete Time: 09:27 cp 05/23 09:27 Interpretation: Normal except: CL 108. cp 05/23 08:39 Order name: CBC with Diff; Complete Time: 09:12 cp 05/23 09:12 Interpretation: Normal except: RBC 5.67; MPV 6.9. cp 05/23 08:39 Order name: Creatinine for Radiology; Complete Time: 09:27 cp 05/23 08:39 Order name: Hepatic Function; Complete Time: 09:27 cp 05/23 09:28 Interpretation: Normal except: GLOB 3.7. cp 05/23 08:39 Order name: Lipase; Complete Time: 09:27 cp 05/23 08:39 Order name: Urine Microscopic Only; Complete Time: 09:50 cp 05/23 09:50 Interpretation: Reviewed. cp 05/23 08:39 Order name: IV Saline Lock; Complete Time: 08:53 cp 05/23 08:39 Order name: Labs collected and sent; Complete Time: 08:53 cp 05/23 08:44 Order name: CT Stone Protocol; Complete Time: 09:50 cp 05/23 09:36 Order name: Urine Dipstick--Ancillary (enter results); Complete Time: 09:42 eb 05/23 09:42 Interpretation: Normal except: UPROT 1+. cp 05/23 08:39 Order name: Urine Dipstick-Ancillary (obtain specimen); Complete Time: 10:27 cp Administered Medications: 08:57 Drug: NS 0.9% 1000 ml Route: IV; Rate: 1 bolus; Site: right antecubital; rb1 10:03 Follow up: IV Status: Completed infusion rb1 08:57 Drug: Zofran 4 mg Route: IVP; Site: right antecubital; rb1 09:10 Follow up: Response: No adverse reaction; Nausea is decreased rb1 08:57 Drug: TORadol 30 mg Route: IVP; Site: right antecubital; rb1 09:10 Follow up: Response: No adverse reaction; Pain is unchanged, physician notified rb1 09:40 Drug: fentaNYL (PF) 25 mcg Route: IVP; Site: right antecubital; rb1 10:00 Follow up: Response: No adverse reaction; Pain is decreased rb1 Disposition: 11:03 Co-signature as Attending Physician, Piyush Kraus MD. rn Disposition: 05/23/18 09:53 Discharged to Home. Impression: Unspecified abdominal pain, Diarrhea, unspecified. - Condition is Stable. - Discharge Instructions: Abdominal Pain, Adult, Diarrhea, Adult. - Prescriptions for Bentyl 20 mg Oral Tablet - take 2 tablets by ORAL route every 6 hours As needed; 30 tablet. Zofran 4 mg Oral Tablet - take 1 tablet by ORAL route every 12 hours As needed; 20 tablet. - Medication Reconciliation Form, Thank You Letter, Antibiotic Education, Prescription Opioid Use, Work release form form. - Follow up: Gumaro Aguirre MD; When: 1 - 2 days; Reason: Worsening of condition. - Problem is new. - Symptoms have improved. Signatures: Dispatcher [employer] EDMS Piyush Kraus MD MD rn Dank Sotomayor PA PA cp Gema Dao, RN RN rb1 Annelise Gonzalez RN RN Corrections: (The following items were deleted from the chart) 09:54 09:53 05/23/2018 09:53 Discharged to Home. Impression: Unspecified abdominal pain. cp Condition is Stable. Forms are Medication Reconciliation Form, Thank You Letter, Antibiotic Education, Prescription Opioid Use. Follow up: Gumaro Aguirre; When: 1 - 2 days; Reason: Worsening of condition. Problem is new. Symptoms have improved. cp 09:55 08:41 Abdomen/GI: Positive for abdominal pain, nausea, Negative for vomiting, diarrhea, cp constipation, cp 09:55 08:41 All other systems are negative, cp cp 10:23 09:54 05/23/2018 09:53 Discharged to Home. Impression: Unspecified abdominal pain; rb1 Diarrhea, unspecified. Condition is Stable. Discharge Instructions: Abdominal Pain, Adult, Diarrhea, Adult. Prescriptions for Bentyl 20 mg Oral Tablet - take 2 tablets by ORAL route every 6 hours As needed; 30 tablet, Zofran 4 mg Oral Tablet - take 1 tablet by ORAL route every 12 hours As needed; 20 tablet. and Forms are Medication Reconciliation Form, Thank You Letter, Antibiotic Education, Prescription Opioid Use. Follow up: Gumaro Aguirre; When: 1 - 2 days; Reason: Worsening of condition. Problem is new. Symptoms have improved. cp
[2018-05-23 10:27] VITALS: TEMP 98.3
[2018-05-23 10:29] VITALS: BP 129/85; O2SAT 96
== END 2018-05-23 10:23 | disposition home or self-care (01) ==
LOC: ER 08:30
DX: R10.9 Unspecified abdominal pain (principal); R19.7 Diarrhea, unspecified; F31.9 Bipolar disorder, unspecified; Z88.5 Allergy status to narcotic agent
CPT/HCPCS: 36415; 74176; 76377; 80048; 80076; 81003; 81015; 83690; 85025; 96361; 96374; 96375; 99284; J2405; J3010; J7030

== ENCOUNTER 2019-01-15 08:07 | Emergency (ER) | payer BC ==
--- OUTSIDE RECORDS SUMMARY | 2019-01-15 08:18 | XMS REPORT ---
:1985 [facility] Address [address] [place] [address] [address] [place] [address] Care Team Providers Name Role Phone Unavailable Unavailable Unavailable Problems This patient has no known problems. Allergies, Adverse Reactions, Alerts This patient has no known allergies or adverse reactions. Medications This patient has no known medications.
--- OUTSIDE RECORDS SUMMARY | 2019-01-15 08:19 | XMS REPORT ---
:1985 Author Organization e[employer]Works Care Team Providers Name Role Phone Jagidsh Daisy Provider Role Unavailable Allergies, Adverse Reactions, Alerts Substance Reaction Event Type N.K.D.A. Info Not Available Non Drug Allergy Problems Problem Type Condition Code Onset Dates Condition Status Problem Bipolar affective disorder F31.9 Active Problem Acute serous otitis media H65.00 Active Problem Dietary surveillance and counseling Z71.3 Active Problem Hypertension, unspecified type I10 Active Problem Obesity (BMI 30-39.9) E66.9 Active Problem Seasonal allergies J30.2 Active Problem Reflux esophagitis K21.0 Active Problem Bipolar affective disorder, F31.9 Active remission status unspecified Problem Calculus of kidney and ureter N20.2 Active Assessment Obesity (BMI 30-39.9) E66.9 Active Assessment Dietary surveillance and counseling Z71.3 Active Assessment Influenza vaccine administered Z23 Active Assessment Bipolar affective disorder, F31.9 Active remission status unspecified Assessment Hypertension, unspecified type I10 Active Medications Medication Code Code Instructions Start End Status Dosage System Date Date Zyrtec Allergy [facility] 70330331712 10 MG Orally Active 1 tablet Once a day Abilify [facility] 57256204754 10 MG Orally Active 1 tablet in Once a day evening Protonix ND 22998720400 40 MG Orally Active 1 tablet Once a day Bentyl [facility] 03590465350 10 MG Orally Active 2 capsules Four times a day Prilosec [facility] 28795420091 2.5 MG Orally Active 4 packets Once a day Lisinopril ND 68261162670 10 MG Orally Active 1 tablet Once daily Auralgan ND 0 Active not defined Vitamin D3 [facility] 84624536025 2000 UNIT Active 1 capsule Orally Once a day Amoxicillin ND 34416704659 875 MG Orally Active 1 tablet Twice a day Lamictal ND 91271230142 200 MG Orally Active 1 tablet Twice a day Results No Known Results Immunizations Vaccine Administration Date Flucelvax - single dose syringe Dec 16, 2018 Summary Purpose eClinicalWorks Submission
[2019-01-15] MEDS ORDERED: LIDOCAINE 1% W/EPI 1:100,000 MDV 20 ML VIAL ONE (08:37)
--- NOTE | 2019-01-15 09:03 | EDPHYS ---
Physician Documentation [facility] Name: Roland Cueto Jr Age: 33 yrs Sex: Male : 1985 Arrival Date: 01/15/2019 Time: 08:10 Bed 8 Private MD: Daisy Dubon ED Physician Kip Han HPI: 01/15 08:27 This 33 yrs old Male presents to ER via Ambulatory with complaints of Abscess.ps1 08:27 onset 2 days ago has a cutaneous abscess and mild surrounding cellulitis. Pain rated as ps1 moderate. Not opened but pointing and appears fluctuant. Tried warm compress. No fever. . Historical: - Allergies: 08:27 No Known Drug Allergies; ss - Home Meds: 08: Lamictal 400 mg daily Oral [Active]; Lisinopril Oral [Active]; ss - PMHx: 08:27 Bipolar disorder; Gastroenteritis; Kidney stones; ss - PSHx: 08:27 Cholecystectomy; Appendectomy; Tonsillectomy; I\T\D; ss - Immunization history:: Adult Immunizations up to date. - Social history:: Smoking status: Patient/guardian denies using tobacco. - Ebola Screening: : Patient denies exposure to infectious person Patient denies travel to an Ebola-affected area in the 21 days before illness onset. ROS: 08:27 Constitutional: Negative for fever, chills, and weight loss, Cardiovascular: Negative ps1 for chest pain, palpitations, and edema, Respiratory: Negative for shortness of breath, cough, wheezing, and pleuritic chest pain, Abdomen/GI: Negative for abdominal pain, nausea, vomiting, diarrhea, and constipation, MS/Extremity: Negative for injury and deformity. 08:27 Skin: Positive for abscess. 08:27 All other systems are negative. Exam: 08:27 Constitutional: This is a well developed, well nourished patient who is awake, alert, ps1 and in no acute distress. Head/Face: Normocephalic, atraumatic. Eyes: Pupils equal round and reactive to light, extra-ocular motions intact. Lids and lashes normal. Conjunctiva and sclera are non-icteric and not injected. Cardiovascular: Regular rate and rhythm. No gallops, murmurs, or rubs. Normal PMI, no JVD. No pulse deficits. Respiratory: Lungs have equal breath sounds bilaterally, clear to auscultation and percussion. No rales, rhonchi or wheezes noted. No increased work of breathing, no retractions or nasal flaring. Abdomen/GI: Soft, non-tender, with normal bowel sounds. No distension or tympany. No guarding or rebound. No evidence of tenderness throughout. 08:27 MS/ Extremity: Pulses equal, no cyanosis. Neurovascular intact. Full, normal range of motion. Neuro: Awake and alert, GCS 15, oriented to person, place, time, and situation. Cranial nerves II-XII grossly intact. Sensory grossly intact. 08:27 Skin: abscess, that is moderate sized, approximately 3 cm(s), of the lateral aspect of right thigh, cellulitis, that is minimal. Vital Signs: 08:27 BP 165 / 109; Pulse 83; Resp 16; Temp 97.9(TE); Pulse Ox 98% on R/A; Weight 106.59 kg; ss Height 5 ft. 11 in. (180.34 cm); Pain 2/10; 08:27 Body Mass Index 32.78 (106.59 kg, 180.34 cm) ss Procedures: 09:00 I \T\ D: Incision and drainage was performed for an abscess of the right lateral aspect ps1 of right thigh Prepped with alcohol, Anesthetized with 10 ml's 1% Lidocaine w/ Epi. Incised with #11 blade. Drained moderate amount purulent fluid. Dressing: sterile 4x4 gauze, the patient tolerated the procedure well. MDM: 08:27 Patient medically screened. ps1 09:00 Differential diagnosis: abscess, cellulitis. Data reviewed: vital signs, nurses notes, ps1 and as a result, I will discharge patient. Counseling: I had a detailed discussion with the patient and/or guardian regarding: the historical points, exam findings, and any diagnostic results supporting the discharge/admit diagnosis, the presence of at least one elevated blood pressure reading (>120/80) during this emergency department visit, lab results, to return to the emergency department if symptoms worsen or persist or if there are any questions or concerns that arise at home. Administered Medications: 09:00 Drug: Lidocaine-Epinephrine -1%: (1:100,000) 1 vials Volume: 20 ml; Route: Infiltration;hb 09:19 Follow up: Response: No adverse reaction hb Disposition: 01/15/19 09:01 Discharged to Home. Impression: cutaneous abscess. - Condition is Stable. - Discharge Instructions: Skin Abscess. - Prescriptions for Anaprox DS 550 mg Oral Tablet - take 1 tablet by ORAL route every 12 hours As needed; 20 tablet. Medrol (Javier) 4 mg Oral Tablets, Dose Pack - take 1 tablet by ORAL route as directed - follow package instructions; 1 packet. Bactrim DS 800- 160 mg Oral Tablet - take 1 tablet by ORAL route every 12 hours for 5 days; 10 tablet. - Medication Reconciliation Form, Thank You Letter, Antibiotic Education, Prescription Opioid Use form. - Follow up: Daisy Dubon MD; When: As needed; Reason: Further diagnostic work-up, Recheck today's complaints, Continuance of care, Re-evaluation by your physician. Follow up: Emergency Department; When: As needed; Reason: Fever > 102 F, Worsening of condition. - Problem is new. - Symptoms have improved. Signatures: Maty Chou RN RN Annelise Gonzalez RN RN Kip Han MD MD ps1 Corrections: (The following items were deleted from the chart) 09:22 09:01 01/15/2019 09:01 Discharged to Home. Impression: cutaneous abscess. Condition is hb Stable. Forms are Medication Reconciliation Form, Thank You Letter, Antibiotic Education, Prescription Opioid Use. Follow up: Daisy Dubon; When: As needed; Reason: Further diagnostic work-up, Recheck today's complaints, Continuance of care, Re-evaluation by your physician. Follow up: Emergency Department; When: As needed; Reason: Fever > 102 F, Worsening of condition. Problem is new. Symptoms have improved. ps1
--- NOTE | 2019-01-15 09:03 | ER ---
Nurse's Notes [facility] Name: Roland Cueto Jr Age: 33 yrs Sex: Male : 1985 Arrival Date: 01/15/2019 Time: 08:10 Bed 8 Private MD: Daisy Dubon Diagnosis: cutaneous abscess Presentation: 01/15 08:25 Presenting complaint: Patient states: abscess to R lateral thigh that began 4 days ago. ss Denies fever. Transition of care: patient was not received from another setting of care. Onset of symptoms was January 11, 2019. Risk Assessment: Do you want to hurt yourself or someone else? Patient reports no desire to harm self or others. Initial Sepsis Screen: Does the patient meet any 2 criteria? No. Patient's initial sepsis screen is negative. Does the patient have a suspected source of infection? Yes: Skin breakdown/wound. Care prior to arrival: None. 08:25 Method Of Arrival: Ambulatory ss 08:25 Acuity: ALEX 4 ss Historical: - Allergies: 08:27 No Known Drug Allergies; ss - Home Meds: 08:27 Lamictal 400 mg daily Oral [Active]; Lisinopril Oral [Active]; ss - PMHx: 08:27 Bipolar disorder; Gastroenteritis; Kidney stones; ss - PSHx: 08:27 Cholecystectomy; Appendectomy; Tonsillectomy; I\T\D; ss - Immunization history:: Adult Immunizations up to date. - Social history:: Smoking status: Patient/guardian denies using tobacco. - Ebola Screening: : Patient denies exposure to infectious person Patient denies travel to an Ebola-affected area in the 21 days before illness onset. Screenin:30 Abuse screen: Denies threats or abuse. Denies injuries from another. Nutritional hb screening: No deficits noted. Tuberculosis screening: No symptoms or risk factors identified. Fall Risk None identified. Assessment: 08:30 General: Appears in no apparent distress. Behavior is calm, cooperative. Pain: Pain hb currently is 2 out of 10 on a pain scale. Neuro: Level of Consciousness is awake, alert, obeys commands, Oriented to person, place, time, situation. Cardiovascular: Capillary refill < 3 seconds Patient's skin is warm and dry. Respiratory: Airway is patent Respiratory effort is even, unlabored, Respiratory pattern is regular, symmetrical. GI: No signs and/or symptoms were reported involving the gastrointestinal system. : No signs and/or symptoms were reported regarding the genitourinary system. EENT: No signs and/or symptoms were reported regarding the EENT system. Derm: Abscess located on lateral aspect of right thigh is quarter sized. Musculoskeletal: No signs and/or symptoms reported regarding the musculoskeletal system. Vital Signs: 08:27 BP 165 / 109; Pulse 83; Resp 16; Temp 97.9(TE); Pulse Ox 98% on R/A; Weight 106.59 kg; ss Height 5 ft. 11 in. (180.34 cm); Pain 2/10; 08:27 Body Mass Index 32.78 (106.59 kg, 180.34 cm) ED Course: 08:10 Patient arrived in ED. mr 08:10 Daisy Dubon MD is Private Physician. mr 08:21 Kip Han MD is Attending Physician. ps1 08:26 Triage completed. ss 08:27 Arm band placed on right wrist. ss 08:30 Patient has correct armband on for positive identification. Bed in low position. Call hb light in reach. 08:56 Annelise Gonzalez RN is Primary Nurse. hb 09:01 Daisy Dubon MD is Referral Physician. ps1 09:21 No provider procedures requiring assistance completed. Patient did not have IV access hb during this emergency room visit. Administered Medications: 09:00 Drug: Lidocaine-Epinephrine -1%: (1:100,000) 1 vials Volume: 20 ml; Route: Infiltration;hb 09:19 Follow up: Response: No adverse reaction hb Outcome: 09:01 Discharge ordered by . ps1 09:21 Discharged to home ambulatory. hb 09:21 Condition: stable 09:21 Discharge instructions given to patient, Instructed on discharge instructions, follow up and referral plans. medication usage, Demonstrated understanding of instructions, follow-up care, medications, Prescriptions given X 3. 09:22 Patient left the ED. Signatures: Monica Do Maty Chou, RN RN Annelise Gonzalez, FABY RN Kip Han MD MD ps1
[2019-01-15 09:33] VITALS: BP 165/109; TEMP 97.9; O2SAT 98
== END 2019-01-15 09:22 | disposition home or self-care (01) ==
LOC: ER 08:07
PROC: 0J9N0ZZ Drainage of Right Lower Leg Subcutaneous Tissue and Fascia, Open Approach (ICD-10-PCS; principal; 2019-01-15)
DX: L02.415 Cutaneous abscess of right lower limb (principal)
CPT/HCPCS: 99283

== ENCOUNTER 2019-04-16 06:56 | Emergency (ER) | payer BC ==
--- OUTSIDE RECORDS SUMMARY | 2019-04-16 06:58 | XMS REPORT ---
:1985 [facility] Address [address] [place] [address] [address] [place] [address] Care Team Providers Name Role Phone Unavailable Unavailable Unavailable Problems This patient has no known problems. Allergies, Adverse Reactions, Alerts This patient has no known allergies or adverse reactions. Medications This patient has no known medications.
--- OUTSIDE RECORDS SUMMARY | 2019-04-16 06:58 | XMS REPORT ---
[...] Status Dosage System Date Date Zyrtec Allergy [facility] 93642596126 10 MG Orally Active 1 tablet Once a day Abilify [facility] 34458719763 10 MG Orally Active 1 tablet in Once a day evening Protonix ND 55274953227 40 MG Orally Active 1 tablet Once a day Bentyl [facility] 94565817017 10 MG Orally Active 2 capsules Four times a day Prilosec [facility] 75253789425 2.5 MG Orally Active 4 packets Once a day Lisinopril ND 46262883021 10 MG Orally Active 1 tablet Once daily Auralgan ND 0 Active not defined Vitamin D3 [facility] 03038332490 2000 UNIT Active 1 capsule Orally Once a day Amoxicillin ND 60496811763 875 MG Orally Active 1 tablet Twice a day Lamictal ND 01934773790 200 MG Orally Active 1 tablet Twice a day Results No Known Results Immunizations Vaccine Administration Date Flucelvax - single dose syringe Dec 16, 2018 Summary Purpose eClinicalWorks Submission
--- OUTSIDE RECORDS SUMMARY | 2019-04-16 06:58 | XMS REPORT | Summary of Care ---
:1985 Author Organization [facility] Address [address] [place] [id number] Care Team Providers Name Role Phone Pcp, Patient Does Not Have A Primary Care Provider Reason for Visit Reason Comments Refill Request Encounter Details Date Type Department Care Team Description 02/27/2019 Refill [facility] Pediatric and Nate Grant MD Refill Request Adult Primary Care- [address] [place] [address] Dr Garcia [facility] [address] [facility] , [place] [address] [address] [place] [phone] Allergies No Known Allergiesdocumented as of this encounter (statuses as of 02/28/2019) Medications Medication Sig Dispensed Refills Start Date End Date Status pantoprazole (PROTONIX) 0 06/12/2015 Active 40 mg EC tablet dicyclomine (BENTYL) 20 0 06/12/2015 Active mg tablet lamoTRIgine (LAMICTAL) Take 200 mg by 0 Active 200 mg tablet mouth daily. lisinopril 10 mg tablet TAKE ONE (1) 2 03/29/2017 Active TABLET(S) BY MOUTH ONCE A DAY. ARIPiprazole 10 mg TAKE ONE (1) 0 04/20/2017 Active tablet TABLET(S) BY MOUTH ONCE A DAY. methylPREDNISolone Take by mouth 21 Each 0 05/16/2018 Active (MEDROL, CJ,) 4 mg SEE-INSTRUCTIONS tabletsIndications: Left . follow package wrist pain directions amoxicillin-clavulanate Take 1 tablet by 14 tablet 0 02/23/2019 Active 875-125 mg per mouth 2 (two) 0 tabletIndications: times daily for Non-recurrent acute 7 days. suppurative otitis media of both ears without spontaneous rupture of tympanic membranes acetaminophen-codeine 1/2 - 1 tab 10 tablet 0 02/27/2019 Active 300-30 mg Every 4hrs as tabletIndications: needed for pain Non-recurrent acute or cough suppurative otitis media requiring of both ears with narcotic spontaneous rupture of tympanic membranes documented as of this encounter (statuses as of 02/28/2019) Active Problems Problem Noted Date Right shoulder pain 12/03/2015 documented as of this encounter (statuses as of 02/28/2019) Social History Tobacco Use Types Packs/Day Years Used Date Never Smoker Smokeless Tobacco: Never Used Alcohol Use Drinks/Week oz/Week Comments No 0 Standard drinks or equivalent 0.0 Sex Assigned at Date Recorded Not on file Job Start Date Occupation Industry Not on file Not on file Not on file Travel History Travel Start Travel End No recent travel history available. documented as of this encounter Last Filed Vital Signs Not on filedocumented in this encounter Plan of Treatment Health Maintenance Due Date Last Done Comments VARICELLA VACCINES ( of - 1986 2-dose childhood series) DTaP,Tdap,and Td Vaccines ( - 02/03/1996 Tdap) INFLUENZA VACCINE (#1) 2018 PNEUMOCOCCAL 0-64 YEARS COMBINED Aged Out No longer eligible based on SERIES patient's age to complete this topic documented as of this encounter Results Not on filedocumented in this encounter Visit Diagnoses Diagnosis Non-recurrent acute suppurative otitis media of both ears without spontaneous rupture of tympanic membranes documented in this encounter Insurance Payer Benefit Plan Subscriber ID Effective Dates Phone Address Type / Group [facility] [facility] [id number] 2017-Jean [place] [phone] [address] PPO/[place] [id number] [place] [address] documented as of this encounter
--- OUTSIDE RECORDS SUMMARY | 2019-04-16 06:58 | XMS REPORT | Summary of Care ---
:1985 Author Organization [facility] Address [address] [place] [id number] Care Team Providers Name Role Phone Pcp, Patient Does Not Have A Primary Care Provider Reason for Visit Reason Comments Ear Pain bilateral ear pain Encounter Details Date Type Department Care Team Description 02/27/2019 Urgent Care [facility] Unknown, Attending Non- recurrent acute suppurative otitis media of both ears with spontaneous rupture of tympanic membranes (Primary Dx); Urgent Care Jacobo Barber MD [address] [place] [id number] [phone] Allergies No Known Allergiesdocumented as of this encounter (statuses as of 02/27/2019) Medications Medication Sig Dispensed Refills Start Date [...] as of this encounter (statuses as of 02/27/2019) Active Problems Problem Noted Date Right shoulder pain 12/03/2015 documented as of this encounter (statuses as of 02/27/2019) Social History Tobacco Use Types Packs/Day Years [...] of this encounter Last Filed Vital Signs Vital Sign Reading Time Taken Comments Blood Pressure 131/88 02/27/2019 7:37 PM REORDERING CLERK Pulse 86 02/27/2019 7:37 PM REORDERING CLERK Temperature 36.8 C (98.2 F) 02/27/2019 7:37 PM REORDERING CLERK Respiratory Rate 17 02/27/2019 7:37 PM REORDERING CLERK Oxygen Saturation 97% 02/27/2019 7:37 PM REORDERING CLERK Inhaled Oxygen Concentration - - Weight 105.5 kg (232 lb 9.6 oz) 02/27/2019 7:37 PM REORDERING CLERK Height 180.3 cm (5' 11") 02/27/2019 7:37 PM REORDERING CLERK Body Mass Index 32.44 02/27/2019 7:37 PM REORDERING CLERK documented in this encounter Patient Instructions Patient InstructionsJacobo Barber MD - 02/27/2019 7:30 PM CST1. Non- recurrent acute suppurative otitis media of both ears with spontaneous rupture of tympanic membranes - acetaminophen-codeine 300-30 mg tablet; 1/2 - 1 tab Every 4hrs as needed for pain or cough requiring narcotic Dispense: 10 tablet; Refill: 0 Better but not resolved -- and may take 6 weeks to return to normal. Continue antibiotic Pain Acetaminophen (Tylenol) 500mg take 2 tablets twice a day baseline and up to 4 times a day for pain. May add Ibuprofen 200mg take 2 tablets every 4 hours if greater relief needed. In blinded studies, greater than 400mg does not relieve pain better than 400mg. If any risk of heart problem, limit to 1200mg a day. Tylenol and ibuprofen may be taken at the same time and give greater relief than expected if add thetwo effects together, called "1+1=3" Codeine if narcotic necessary, Has a tylenol 300mg in it, to be counted in daily total. Do not drive or engage in hazardous activities for 4 hours after taking codeine. Need follow on right ear drum perforation. 2. Cough Cough Honey 2 teaspoons relieves airway irritation. Use as needed. Dark Chocolate may help with cough (xanthenes). Research from [place] but did not specify how many boxes to eat. Guaifenesin 100mg / Dextromethorphan 10mL in 5mL (Robitussin DM): 10mL every 4 hours as needed for cough and mucous flow. Many other brands. Recommend those with only guaifenesin & dextromethorphan. Codeine when a narcotic is needed -- beginning with half pill -- especially if you are sensitive it will be enough. Use a full pill if needed. Codeine suppresses your cough by acting in your brain -- it does not work on your throat, anymore than it goes down to a sprained ankle to relieve pain. Pills are easier than liquid medicines and lead to fewer accidental dosing errors. Do not drive or engage in hazardous activities for 4 hours after taking codeine. Mucus color is a function of white cells, which means your immune system is working. The color does not indicate what the immune system is protecting against: virus, bacteria, irritant. For a short video on YouTube, search "[employer] What your mucus says about your health". See primary provider next week as scheduled. Return here as needed. DERING CLERK documented in this encounter Progress Notes Jacobo Barber MD - 02/27/2019 7:30 PM CST Cc: Chief Complaint Patient presents with Ear Pain bilateral ear pain Roland Cueto is a 34 year old male. HPI Yesterday and today left ear popped loudly and hurt. Pain resolved and muffled hearing. Right ear ringing and diminished hearing. Pain fluctuates and sometimes for 3-4 minutes acute marked pain. Better with pressure on ear Cough, productive of green sputum Sleep occasional interrupted with ear pain. Tx: Amoxicillin/Clav, IB Medications Outpatient Medications Prior to Visit Medication Sig Dispense Refill amoxicillin-clavulanate 875-125 mg per tablet Take 1 tablet by mouth 2 (two ) times daily for 7 days. 14 tablet 0 methylPREDNISolone (MEDROL, CJ,) 4 mg tablets Take by mouth SEE- INSTRUCTIONS. follow package directions 21 Each 0 ARIPiprazole 10 mg tablet TAKE ONE (1) TABLET(S) BY MOUTH ONCE A DAY. 0 lisinopril 10 mg tablet TAKE ONE (1) TABLET(S) BY MOUTH ONCE A DAY. 2 lamoTRIgine (LAMICTAL) 200 mg tablet Take 200 mg by mouth daily. dicyclomine (BENTYL) 20 mg tablet 0 pantoprazole (PROTONIX) 40 mg EC tablet 0 No facility-administered medications prior to visit. Review of Systems Constitutional: Denies fever, chills Skin: Denies: Rash Allergy/Immunology: rhinorrhea Eyes: Denies: visual loss or blurred vision ENT: Earache, nasal congestion, Denies:sore throat Respiratory: cough Denies: dyspnea, Gastrointestinal: Denies: abdominal pain, nausea, vomiting, diarrhea Genitourinary: Denies: dysuria, urgency, frequency Musculoskeletal: Denies: Lumbar pain, extremity pain Neuro: headache associated with ears Denies: vision change, dizziness, lightheaded Past Medical History: No date: Bipolar 1 disorder No date: Esophageal reflux No date: Peptic ulcer 12/03/2015: Right shoulder pain Past Surgical History: No date: APPENDECTOMY No date: REMOVAL GALLBLADDER Review of patient's family history indicates: Problem: Crohns Relation: Mother Age of Onset: (Not Specified) Problem: Hypertension Relation: Father Age of Onset: (Not Specified) Problem: Glaucoma Relation: Father Age of Onset: (Not Specified) Problem: Cancer Relation: Maternal Grandmother Age of Onset: (Not Specified) Problem: Heart Relation: Maternal Grandmother Age of Onset: (Not Specified) Problem: Cancer Relation: Paternal Grandmother Age of Onset: (Not Specified) Social History Socioeconomic History Marital status: Spouse name: Not on file Number of children: Not on file Years of education: Not on file Highest education level: Not on file Occupational History Not on file Social Needs Financial resource strain: Not on file Food insecurity: Worry: Not on file Inability: Not on file Transportation needs: Medical: Not on file Non-medical: Not on file Tobacco Use Smoking status: Never Smoker Smokeless tobacco: Never Used Substance and Sexual Activity Alcohol use: No Alcohol/week: 0.0 standard drinks Drug use: Not on file Sexual activity: Not on file Lifestyle Physical activity: Days per week: Not on file Minutes per session: Not on file Stress: Not on file Relationships Social connections: Talks on phone: Not on file Gets together: Not on file Attends uatsdin service: Not on file Active member of club or organization: Not on file Attends meetings of clubs or organizations: Not on file Relationship status: Not on file Intimate partner violence: Fear of current or ex partner: Not on file Emotionally abused: Not on file Physically abused: Not on file Forced sexual activity: Not on file Other Topics Concerns: Not on file Social History Narrative Not on file Vital Signs BP 131/88 | Pulse 86 | Temp 36.8 C (98.2 F) (Oral) | Resp 17 | Ht 5' 11 " (1.803 m) | Wt 232lb 9.6 oz (105.5 kg) | SpO2 97% | BMI 32.44 kg/m Physical Exam Head: Inspection normal. Eyes: PERRL, conjunctiva/sclera normal ENT: moist mucous membranes, palate normal, pharynx normal, Ears: right red center, distorted landmarks, small perforation with crusting group home between center and 5:30. Left bulging with white middle ear fluid. nose normal Neck: non-tender, no masses or swelling Respiratory/Chest: breath sounds normal, no wheezing Cardiovascular: regular rate and rhythm, heart sounds normal GI: abdomen soft, non-tender MS: Legs: non-tender Back: non-tender, no CVA tenderness Skin: no rash. Normal color and turgor. Neurologic: alert, speech normal, gait normal Psychiatric: Interactive, Mood normal Assessment/Plan 1. Non-recurrent acute suppurative otitis media of both ears with spontaneous rupture of tympanic membranes - acetaminophen-codeine 300-30 mg tablet; 1/2 - 1 tab Every 4hrs as needed for pain or cough requiring narcotic Dispense: 10 tablet; Refill: 0 Better but not resolved -- and may take 6 weeks to return to normal. Continue antibiotic Pain Acetaminophen (Tylenol) 500mg take 2 tablets twice a day baseline and up to 4 times a day for pain. May add Ibuprofen 200mg take 2 tablets every 4 hours if greater relief needed. In blinded studies, greater than 400mg does not relieve pain better than 400mg. If any risk of heart problem, limit to 1200mg a day. Tylenol and ibuprofen may be taken at the same time and give greater relief than expected if add thetwo effects together, called "1+1=3" Codeine if narcotic necessary, Has a tylenol 300mg in it, to be counted in daily total. Do not drive or engage in hazardous activities for 4 hours after taking codeine. Need follow on right ear drum perforation. 2. Cough Cough Honey 2 teaspoons relieves airway irritation. Use as needed. Dark Chocolate may help with cough (xanthenes). Research from [place] but did not specify how many boxes to eat. Guaifenesin 100mg / Dextromethorphan 10mL in 5mL (Robitussin DM): 10mL every 4 hours as needed for cough and mucous flow. Many other brands. Recommend those with only guaifenesin & dextromethorphan. Codeine when a narcotic is needed -- beginning with half pill -- especially if you are sensitive it will be enough. Use a full pill if needed. Codeine suppresses your cough by acting in your brain -- it does not work on your throat, anymore than it goes down to a sprained ankle to relieve pain. Pills are easier than liquid medicines and lead to fewer accidental dosing errors. Do not drive or engage in hazardous activities for 4 hours after taking codeine. Mucus color is a function of white cells, which means your immune system is working. The color does not indicate what the immune system is protecting against: virus, bacteria, irritant. For a short video on [employer], search "[employer] What your mucus says about your health". See primary provider next week as scheduled. Return here as needed. rRosie toribio MA - 02/27/2019 7:30 PM CST Roland Cueto is a 34 year old male. Chief Complaint Patient presents with Ear Pain bilateral ear pain Meds and allergies reviewed with patient documented in this encounter Plan of Treatment Health Maintenance Due Date Last Done Comments VARICELLA VACCINES (1 of 2 - 1986 2-dose childhood series) DTaP,Tdap,and Td Vaccines ( - 02/03/1996 Tdap) INFLUENZA VACCINE (#1) 2018 PNEUMOCOCCAL 0-64 YEARS COMBINED Aged Out No longer eligible based on SERIES patient's age to complete this topic documented as of this encounter Results Not on filedocumented in this encounter Visit Diagnoses Diagnosis Non-recurrent acute suppurative otitis media of both ears with spontaneous rupture of tympanic membranes - Primary Cough documented in this encounter Insurance Payer Benefit Plan Subscriber ID Effective Dates Phone Address Type / Group [facility]BS [facility] [id number] 2017-[place] [phone] [address] PPO/POS [place] t [id number] [place] [address] documented as of this encounter
[2019-04-16] MEDS ORDERED: PANTOPRAZOLE 40 MG INJ ONE (07:26)
[2019-04-16 07:28] LABS: Urine Blood NEGATIVE (NEG); Urine Glucose NEGATIVE (NEG); Urine Protein 1+ (NEG); Urine Specific Gravity >1.030 (1.005-1.030); Urine pH 5.5 (5.0-7.0)
[2019-04-16 07:29] LABS: Protime INR 0.91
[2019-04-16 07:30] LABS: Absolute Lymphocytes (CBC) 1.9 K/uL (0.7-4.9); Basophils % 0.4 % (0-1.3); Lymphocytes % 18.1 % (15.3-44.8); MPV 7.2 fL (7.6-11.3); RBC Red Blood Cell Count 5.28 M/uL (4.33-5.43)
[2019-04-16 07:41] LABS: Albumin 3.8 g/dL (3.4-5.0); Bilirubin Direct 0.3 mg/dL (0-0.2); Bilirubin Total 0.7 mg/dL (0.2-1.0); Potassium 3.9 mmol/L (3.5-5.1); Protein, Total 7.7 g/dL (6.4-8.2); Troponin (Emerg Dept Use Only) 0.02 ng/mL (0.0-0.045)
[2019-04-16 07:45] LABS: Barbiturates NEGATIVE (NEGATIVE); Benzodiazepines NEGATIVE (NEGATIVE); Cocaine NEGATIVE (NEGATIVE); METHAMPHETAM NEGATIVE (NEGATIVE); Methadone NEGATIVE (NEGATIVE); Opiates POSITIVE (NEGATIVE); Phencyclidine NEGATIVE (NEGATIVE); THC Cannibis NEGATIVE (NEGATIVE)
--- NOTE | 2019-04-16 08:23 | RAD REPORT ---
EXAM DESCRIPTION: RAD - Chest Single View - 04/16/2019 7:23 am CLINICAL HISTORY: CHEST PAIN Chest pain. COMPARISON: Chest Pa And Lat (2 Views) dated 03/24/2016; CHEST PA AND LAT 2 VIEW dated 03/24/2010; ABD OMEN ACUTE SERIES dated 10/11/2008; CHEST SINGLE VIEW dated 07/29/2007 FINDINGS: Portable technique limits examination quality. The lungs are grossly clear. The heart is normal in size. No displaced fractures. IMPRESSION: No acute intrathoracic process suspected.
--- NOTE | 2019-04-16 08:24 | EKG ---
Test Date: 2019-04-16 Test Time: 07:14:15 Truck Car And Bus Cleaner: PETAR MEASUREMENT RESULTS: Intervals: Rate: 72 DC: 162 QRSD: 84 QT: 374 QTc: 409 [place]: P: 66 DC: 162 QRS: -47 T: 23 INTERPRETIVE STATEMENTS: Normal sinus rhythm Left axis deviation Pulmonary disease pattern Abnormal ECG Compared to ECG 01/16/2016 16:15:20 Myocardial infarct finding no longer present Electronically Signed On 04-16-19 08:23:27 MIXER RUNNER by Ferny Watson
--- NOTE | 2019-04-16 08:51 | EDPHYS ---
Physician Documentation [facility] Name: Roland Cueto Jr Age: 34 yrs Sex: Male : 1985 Arrival Date: 04/16/2019 Time: 06:57 Bed 19 Private MD: ED Physician Piyush Kraus HPI: 04/15 07:45 This 34 yrs old Male presents to ER via Ambulatory with complaints of Chest snw Pain. 07:45 The patient or guardian reports chest pain that is located primarily in the anterior snw aspect of right upper chest and mid-sternal area. The pain radiates to right anterior chest. Associated signs and symptoms: The patient has no apparent associated signs or symptoms. The chest pain is described as burning, sharp. Duration: The patient or guardian reports a single episode. Modifying factors: The symptoms are alleviated by nothing. Severity of pain: At its worst the pain was moderate. The patient has not experienced similar symptoms in the past. The patient has not recently seen a physician, Dr. Bar. No known early heart disease in family. Historical: - Allergies: 07:17 Morphine; "makes me mean"; jl7 - Home Meds: 07:17 Lamictal 400 mg daily Oral [Active]; lisinopril Oral [Active]; jl7 - PMHx: 07:17 Bipolar disorder; Gastroenteritis; Kidney stones; Hypertension; jl7 - PSHx: 07:17 Cholecystectomy; Appendectomy; Tonsillectomy; I\\T\\D; jl7 - Immunization history:: Adult Immunizations not up to date. - Social history:: Smoking status: Patient denies any tobacco usage or history of. ROS: 07:44 Constitutional: Negative for fever, chills, and weight loss, Eyes: Negative for injury, snw pain, redness, and discharge, ENT: Negative for injury, pain, and discharge, Neck: Negative for injury, pain, and swelling, Respiratory: Negative for shortness of breath, cough, wheezing, and pleuritic chest pain, Abdomen/GI: Negative for abdominal pain, nausea, vomiting, diarrhea, and constipation, Back: Negative for injury and pain, : Negative for injury, bleeding, discharge, and swelling, MS/Extremity: Negative for injury and deformity, Skin: Negative for injury, rash, and discoloration, Neuro: Negative for headache, weakness, numbness, tingling, and seizure, Psych: Negative for depression, anxiety, suicide ideation, homicidal ideation, and hallucinations. 07:44 Cardiovascular: Positive for chest pain, of the anterior aspect of right upper chest and mid-sternal area. Exam: 07:44 Constitutional: This is a well developed, well nourished patient who is awake, alert, snw and in no acute distress. Head/Face: Normocephalic, atraumatic. Eyes: Pupils equal round and reactive to light, extra-ocular motions intact. Lids and lashes normal. Conjunctiva and sclera are non-icteric and not injected. Cornea within normal limits. Periorbital areas with no swelling, redness, or edema. ENT: Nares patent. No nasal discharge, no septal abnormalities noted. Tympanic membranes are normal and external auditory canals are clear. Oropharynx with no redness, swelling, or masses, exudates, or evidence of obstruction, uvula midline. Mucous membranes moist. Neck: Trachea midline, no thyromegaly or masses palpated, and no cervical lymphadenopathy. Supple, full range of motion without nuchal rigidity, or vertebral point tenderness. No Meningismus. Chest/axilla: Normal chest wall appearance and motion. Nontender with no deformity. No lesions are appreciated. Cardiovascular: Regular rate and rhythm with a normal S1 and S2. No gallops, murmurs, or rubs. Normal PMI, no JVD. No pulse deficits. Respiratory: Lungs have equal breath sounds bilaterally, clear to auscultation and percussion. No rales, rhonchi or wheezes noted. No increased work of breathing, no retractions or nasal flaring. Abdomen/GI: Soft, non-tender, with normal bowel sounds. No distension or tympany. No guarding or rebound. No evidence of tenderness throughout. Back: No spinal tenderness. No costovertebral tenderness. Full range of motion. Skin: Warm, dry with normal turgor. Normal color with no rashes, no lesions, and no evidence of cellulitis. MS/ Extremity: Pulses equal, no cyanosis. Neurovascular intact. Full, normal range of motion. Neuro: Awake and alert, GCS 15, oriented to person, place, time, and situation. Cranial nerves II-XII grossly intact. Motor strength 5/5 in all extremities. Sensory grossly intact. Cerebellar exam normal. Normal gait. Psych: Awake, alert, with orientation to person, place and time. Behavior, mood, and affect are within normal limits. 07:49 ECG was reviewed by the Attending Physician. snw Vital Signs: 07:05 BP 124 / 82; Pulse 79; Resp 16 S; Pulse Ox 98% on R/A; Weight 107.5 kg (R); Height 5 jl7 ft. 11 in. (180.34 cm) (R); Pain 9/10; 08:12 BP 121 / 64; Pulse 76; Resp 17 S; Pulse Ox 97% on R/A; Pain 5/10; jl7 09:50 BP 135 / 95; Pulse 71; Resp 16 S; Pulse Ox 99% on R/A; ca1 07:05 Body Mass Index 33.05 (107.50 kg, 180.34 cm) jl7 MDM: 07:02 Patient medically screened. snw 09:22 ECG:. Data reviewed: vital signs, nurses notes, lab test result(s), EKG, radiologic snw studies. Counseling: I had a detailed discussion with the patient and/or guardian regarding: the historical points, exam findings, and any diagnostic results supporting the discharge/admit diagnosis, lab results, radiology results, to return to the emergency department if symptoms worsen or persist or if there are any questions or concerns that arise at home. 04/15 07:02 Order name: Basic Metabolic Panel; Complete Time: 07:43 snw 04/15 07:02 Order name: CBC with Diff; Complete Time: 07:38 snw 04/15 07:02 Order name: LFT's; Complete Time: 07:43 snw 04/15 07:02 Order name: Magnesium; Complete Time: 07:43 snw 04/15 07:02 Order name: NT PRO-BNP; Complete Time: 07:43 snw 04/15 07:02 Order name: PT-INR; Complete Time: 07:38 snw 04/15 07:02 Order name: Troponin (emerg Dept Use Only); Complete Time: 07:43 snw 04/15 07:02 Order name: XRAY Chest (1 view); Complete Time: 08:27 snw 04/15 07:02 Order name: EKG; Complete Time: 07:03 snw 04/15 07:02 Order name: Lipase; Complete Time: 07:43 snw 04/15 07:02 Order name: UDS; Complete Time: 07:47 snw 04/15 07:25 Order name: Urine Dipstick--Ancillary (enter results); Complete Time: 07:38 bd 04/15 07:02 Order name: Cardiac monitoring; Complete Time: 07:16 snw 04/15 07:02 Order name: EKG - Nurse/Tech; Complete Time: 07:16 snw 04/15 07:02 Order name: IV Saline Lock; Complete Time: 07:16 snw 04/15 07:02 Order name: Labs collected and sent; Complete Time: 07:16 snw 04/15 07:02 Order name: O2 Per Protocol; Complete Time: 07:16 snw 04/15 07:02 Order name: O2 Sat Monitoring; Complete Time: 07:16 snw Administered Medications: 07:30 Drug: ProTONIX 40 mg Route: IVP; Site: right forearm; [facility] 08:14 Follow up: Response: No adverse reaction; Pain is decreased jl 09:06 Drug: GI Cocktail without - (Maalox Suspension 30 ml, Lidocaine Liquid 2 % 15 jl7 ml) Route: PO; 09:15 Follow up: Response: No adverse reaction jl7 Disposition: 04/16/19 08:49 Discharged to Home. Impression: Gastro-esophageal reflux disease, Chest pain, unspecified. - Condition is Stable. - Discharge Instructions: Nonspecific Chest Pain, Food Choices for Gastroesophageal Reflux Disease, Adult, Gastroesophageal Reflux Disease, Adult, Fat and Cholesterol Restricted Diet, [id number]. - Prescriptions for Protonix 40 mg Oral Tablet - take 1 tablet by ORAL route once daily; 30 tablet. Carafate 1 gram Oral Tablet - take 2 tablet by ORAL route every 12 hours take on an empty stomach, beginning on waking and last dose at bedtime; 100 tablet. - Work release form, Medication Reconciliation Form, Thank You Letter, Antibiotic Education, Prescription Opioid Use form. - Follow up: Emergency Department; When: As needed; Reason: Worsening of condition. Follow up: Private Physician; When: 2 - 3 days; Reason: Recheck today's complaints, Continuance of care, Re-evaluation by your physician. Addendum: 04/19/2019 11:29 Co-signature as Attending Physician, Piyush Kraus MD. r n Signatures: Dispatcher [employer] EDMS Deidra Lowery, NUCLEAR PROCESS ENGINEER-C NUCLEAR PROCESS ENGINEER-Csnw Piyush Kraus MD MD rn DíazDestinee RN RN jl7 Radha Luong RN RN ca1 Corrections: (The following items were deleted from the chart) 04/15 10:02 08:49 04/16/2019 08:49 Discharged to Home. Impression: Gastro-esophageal reflux ca1 disease; Chest pain, unspecified. Condition is Stable. Forms are Medication Reconciliation Form, Thank You Letter, Antibiotic Education, Prescription Opioid Use. Follow up: Emergency Department; When: As needed; Reason: Worsening of condition. Follow up: Private Physician; When: 2 - 3 days; Reason: Recheck today's complaints, Continuance of care, Re-evaluation by your physician. snw
--- NOTE | 2019-04-16 08:51 | ER ---
Nurse's Notes [facility] Name: Roland Cueto Jr Age: 34 yrs Sex: Male : 1985 Arrival Date: 04/16/2019 Time: 06:57 Bed 19 Private MD: Diagnosis: Gastro-esophageal reflux disease;Chest pain, unspecified Presentation: 04/15 07:05 Chief complaint: Patient states: Mid-sternal chest pain, radiates to right side of jl7 chest, started at 0300. Coronavirus screen: The patient has NOT traveled to [place] in the past 14 days. Proceed with normal triage procedures. Ebola Screen: No symptoms or risks identified at this time. Initial Sepsis Screen: Does the patient meet any 2 criteria? No. Patient's initial sepsis screen is negative. Does the patient have a suspected source of infection? No. Patient's initial sepsis screen is negative. Risk Assessment: Do you want to hurt yourself or someone else? Patient reports no desire to harm self or others. Onset of symptoms was April 16, 2019 at 03:00. Care prior to arrival: None. 07:05 Method Of Arrival: Ambulatory [facility] 07:05 Acuity: ALEX 3 jl7 Triage Assessment: 07:05 General: Appears in no apparent distress. uncomfortable, Behavior is calm, cooperative, jl7 appropriate for age. Pain: Complains of pain in mid-sternal area Pain radiates to right breast Pain currently is 9 out of 10 on a pain scale. Quality of pain is described as stabbing, Pain began 3 hours ago. Is continuous. Neuro: Level of Consciousness is awake, alert, obeys commands, Oriented to person, place, time, situation. Cardiovascular: Patient's skin is warm and dry. Respiratory: Airway is patent Respiratory effort is even, unlabored, Respiratory pattern is regular, symmetrical. Derm: Skin is pink, warm \\T\\ dry. Historical: - Allergies: 07:17 Morphine; "makes me mean"; jl7 - Home Meds: 07:17 Lamictal 400 mg daily Oral [Active]; lisinopril Oral [Active]; jl7 - PMHx: 07:17 Bipolar disorder; Gastroenteritis; Kidney stones; Hypertension; jl7 - PSHx: 07:17 Cholecystectomy; Appendectomy; Tonsillectomy; I\\T\\D; jl7 - Immunization history:: Adult Immunizations not up to date. - Social history:: Smoking status: Patient denies any tobacco usage or history of. Screenin:37 Abuse screen: Denies threats or abuse. Denies injuries from another. Nutritional jl7 screening: No deficits noted. Tuberculosis screening: No symptoms or risk factors identified. Fall Risk IV access (20 points). Total Leonard Fall Scale indicates No Risk (0-24 pts). Assessment: 08:12 Reassessment: Patient appears in no apparent distress at this time. Patient and/or jl7 family updated on plan of care and expected duration. Pain level reassessed. Patient is alert, oriented x 3, equal unlabored respirations, skin warm/dry/pink. "It still hurts but its a little better.". Pain: Pain currently is 5 out of 10 on a pain scale. 09:50 Reassessment: Patient appears in no apparent distress at this time. Patient is alert, ca1 oriented x 3, equal unlabored respirations, skin warm/dry/pink. Vital Signs: 07:05 BP 124 / 82; Pulse 79; Resp 16 S; Pulse Ox 98% on R/A; Weight 107.5 kg (R); Height 5 jl7 ft. 11 in. (180.34 cm) (R); Pain 9/10; 08:12 BP 121 / 64; Pulse 76; Resp 17 S; Pulse Ox 97% on R/A; Pain 5/10; jl7 09:50 BP 135 / 95; Pulse 71; Resp 16 S; Pulse Ox 99% on R/A; ca1 07:05 Body Mass Index 33.05 (107.50 kg, 180.34 cm) 7 ED Course: 06:57 Patient arrived in ED. ag3 06:59 Destinee Díaz RN is Primary Nurse. jl7 07:01 Deidra Lowery FNP-C is PHCP. snw 07:01 Piyush Kraus MD is Attending Physician. snw 07:12 Initial lab(s) drawn, by ne, sent to lab. Inserted saline lock: 20 gauge in right dh3 forearm, using aseptic technique. Blood collected. 07:16 Triage completed. jl7 07:17 Arm band placed on right wrist. jl7 07:20 Urine collected: clean catch specimen, clear. 3 07:23 XRAY Chest (1 view) In Process Unspecified. EDMS 07:37 Patient maintains SpO2 saturation greater than 95% on room air. jl7 07:37 Patient has correct armband on for positive identification. Placed in gown. Bed in low jl7 position. Call light in reach. Side rails up X 1. school administrator on. Pulse ox on. NIBP on. 10:01 No provider procedures requiring assistance completed. IV discontinued, intact, ca1 bleeding controlled, No redness/swelling at site. Pressure dressing applied. Administered Medications: 07:30 Drug: ProTONIX 40 mg Route: IVP; Site: right forearm; jl7 08:14 Follow up: Response: No adverse reaction; Pain is decreased jl7 09:06 Drug: GI Cocktail without - (Maalox Suspension 30 ml, Lidocaine Liquid 2 % 15 jl7 ml) Route: PO; 09:15 Follow up: Response: No adverse reaction jl7 Outcome: 08:49 Discharge ordered by MD. fragoso 10:01 Discharged to home ca1 10:01 Condition: stable 10:01 Discharge instructions given to patient, Instructed on discharge instructions, follow up and referral plans. medication usage, Demonstrated understanding of instructions, follow-up care, medications, Prescriptions given X 3. 10:02 Patient left the ED. ca1 Signatures: Dispatcher [employer] EDMS Deidra Lowery, [employer]-Destinee Maxwell, RN RN jl7 Yesika Herrera 3 Lexie Blancas 3 Radha Luong RN RN ca1
[2019-04-16] MEDS ORDERED: LIDOCAINE VISCOUS 2% SOLN 15 ML UDC ONE (09:06)
[2019-04-16] MEDS ORDERED: MAGNE/ALUM HYDROXD 30 ML UCUP ONE (09:06)
[2019-04-16 10:12] VITALS: BP 135/95; O2SAT 99
== END 2019-04-16 10:02 | disposition home or self-care (01) ==
LOC: ER 06:56
DX: K21.9 Gastro-esophageal reflux disease without esophagitis (principal); Z88.6 Allergy status to analgesic agent; I10 Essential (primary) hypertension
CPT/HCPCS: 93005; 85025; 80048; 36415; 83735; 85610; 80076; 80307 ×8; 81003; 84484; 83690; 83880; 71045; 96374; 99285; C9113

== ENCOUNTER 2019-11-25 20:39 | Emergency (ER) | payer BC ==
--- OUTSIDE RECORDS SUMMARY | 2019-11-25 20:42 | XMS REPORT | Clinical Summary ---
:[address] 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
--- OUTSIDE RECORDS SUMMARY | 2019-11-25 20:42 | XMS REPORT | Continuity of Care Document ---
:1985 Author Organization [facility] t Address [address] [place] [address] Care Team Providers Name Role Phone Jagdish LI Primary Care Physician Sunil LI, E Attending Clinician Rudy LI Attending Clinician Problems Condition Condition Condition Status Onset Resolution Last Treating Co mments Source Name Details Category Date Date Treatment Clinician Date Hypertensi Hypertensi Problem Active [facility], [facility] - unspecifie unspecifie Me moria d type d type l [facility] Bipolar Bipolar Problem Active [facility] affective affective [facility] - disorder, disorder, Greg anatoly remission remission l status status [facility] unspecifie unspecifie en t d d Clinics Calculus Calculus Problem Active [facility] kidney [facility] - and ureter and ureter [facility] moria l [facility] Acute Acute Problem Active [facility] serous serous [facility] - otitis otitis [facility] media media l [facility] Seasonal Seasonal Problem Active [facility] allergies allergies [facility] - [facility] Reflux Reflux Problem Active [facility] esophagiti esophagiti Marni kes - s s Memoria l [facility] Dietary Dietary Problem Active [facility] surveillan surveillan Marni kes - ce and ce and Memoria counseling counseling l [facility] Obesity Obesity Problem Active [facility] (BMI (BMI [facility] - 30-39.9) 30-39.9) Memori a l [facility] Allergies, Adverse Reactions, Alerts This patient has no known allergies or adverse reactions. Social History Social Habit Start Date Stop Date Quantity Comments Source Sex Assigned At [facility] Medications Ordered Filled Start Stop Current Ordering Indication Dosage Frequency Signature Comments Components Source Medication Medication Date Date Medication? Clinician (SIG) Name Name Amoxicillin Amoxicillin Yes Daisy [address] [facility] Bentyl Bentyl Yes Daisy [address] [facility] Vitamin D3 Vitamin D3 Yes Daisy [address] [facility] Lamictal Lamictal Yes Daisy [address] [facility] Protonix Protonix Yes Daisy [address] [facility] Auralgan Auralgan Yes Daisy not [facility] defined [facility] Zyrtec Zyrtec Yes Daisy [address] [facility] Allergy Allergy [facility] Abilify Abilify Yes Daisy [address] [facility] in evening [facility] Prilosec Prilosec Yes Daisy [address] [facility] Lisinopril Lisinopril Yes Daisy [address] [facility] Immunizations Ordered Filled Immunization Date Status Comments [facility] Immunization Name Name Flucelvax - single Flucelvax - single 2018-12-[address] [facility] - dose syringe dose syringe 00:00:00 [facility] Procedures This patient has no known procedures. Plan of Care Planned Activity Planned Date Details Comments Source Future Scheduled 2019-09-13 INFLUENZA VACCINE [place] [facility] 00:00:00 [code = INFLUENZA VACCINE] Encounters Start End Encounter Admission Attending Care Care Encounter Source Date/Time Date/Time Type Type Clinicians Facility Department ID 2019-08-26 2019-08-26 [facility] [id number] [facility] 09:35:00 09:35:[address] [facility] Family Medicine Medicine Outpati ent Clinics 2019-02-27 2019-02-27 Urgent Sunil, [facility] [id number] 19:33:50 20:43:51 [facility] [id number] Surgical [id number] Specialti [id number] es Miguel Garcia 2019-02-27 2019-02-27 Refomar Grant [facility] [id number] 00:00:00 00:00:00 Nate Radha [id number] [place] [id number] Professio [id number] [address] 2018-12-16 2018-12-16 [facility] [id number] [facility] 09:20:00 09:20:00 [facility] Medicine Outpati ent Clinics 2017-11-16 2017-11-16 [facility] [id number] [address] 10:15:00 10:15:00 [facility] Medicine Outpati ent Clinics 2017-10-05 2017-10-05 [facility] [id number] [facility] 14:00[facility]00 14:00:00 [facility] 2017-05-25 2017-05-25 [facility] [id number] 15:00:00 15:00:00 [facility] Results This patient has no known results.
[2019-11-25] MEDS ORDERED: NA CHLORIDE 0.9% 1,000 ML ONE (21:23)
[2019-11-25] MEDS ORDERED: FENTANYL CITR 100 MCG/2 ML ONE (21:23)
[2019-11-25] MEDS ORDERED: ASPIRIN 81 MG CHEWABLE TABLET ONE (21:23)
[2019-11-25 21:28] LABS: Absolute Lymphocytes (CBC) 2.8 K/uL (0.7-4.9); Basophils % 0.6 % (0-1.3); Hematocrit 43.6 % (39.6-49.0); Lymphocytes % 34.2 % (15.3-44.8); MPV 6.8 fL (7.6-11.3); RBC Red Blood Cell Count 5.22 M/uL (4.33-5.43)
[2019-11-25 21:29] LABS: Protime INR 1.02
[2019-11-25 21:42] LABS: ALT/SGPT 25 U/L (12-78); AST/SGOT 18 U/L (15-37); Alkaline Phosphatase 91 U/L (45-117); BUN Blood Urea Nitrogen 10 mg/dL (7-18); Bicarbonate 27 mmol/L (21-32); Bilirubin Direct < 0.1 mg/dL (0-0.2); Bilirubin Total 0.3 mg/dL (0.2-1.0); Glucose Level 90 mg/dL (74-106); Magnesium 2.3 mg/dL (1.8-2.4); Potassium 3.9 mmol/L (3.5-5.1); Protein, Total 7.7 g/dL (6.4-8.2); Sodium Level 142 mmol/L (136-145); Troponin (Emerg Dept Use Only) < 0.02 ng/mL (0.0-0.045)
[2019-11-25 22:11] LABS: NT PRO-BNP < 5 pg/mL (<125)
[2019-11-25 22:53] LABS: Barbiturates NEGATIVE (NEGATIVE); Benzodiazepines NEGATIVE (NEGATIVE); Cocaine NEGATIVE (NEGATIVE); METHAMPHETAM NEGATIVE (NEGATIVE); Methadone NEGATIVE (NEGATIVE); Opiates NEGATIVE (NEGATIVE); Phencyclidine NEGATIVE (NEGATIVE); THC Cannibis NEGATIVE (NEGATIVE)
[2019-11-25] MEDS ORDERED: KETOROLAC 30 MG/ML INJ ONE (23:04)
[2019-11-25 23:42] LABS: Urine Blood NEGATIVE (NEG); Urine Glucose NEGATIVE (NEG); Urine Protein 1+ (NEG); Urine Specific Gravity >1.030 (1.005-1.030); Urine pH 6.5 (5.0-7.0)
--- NOTE | 2019-11-26 00:52 | ER ---
Nurse's Notes [facility] Name: Roland Cueto Jr Age: 34 yrs Sex: Male : 1985 Arrival Date: 11/25/2019 Time: 20:42 Bed 18 Private MD: Diagnosis: Other chest pain Presentation: 11/24 20:55 Chief complaint: Patient states: "I am having chest pain that started about an hour and jd3 30 mins ago.". Coronavirus screen: At this time, the client does not indicate any symptoms associated with coronavirus-19. Ebola Screen: Patient negative for fever greater than or equal to 101.5 degrees Fahrenheit, and additional compatible Ebola Virus Disease symptoms. Initial Sepsis Screen: Does the patient meet any 2 criteria? No. Patient's initial sepsis screen is negative. Does the patient have a suspected source of infection? No. Patient's initial sepsis screen is negative. Risk Assessment: Do you want to hurt yourself or someone else? Patient reports no desire to harm self or others. Onset of symptoms was November 25, 2019. 20:55 Method Of Arrival: Ambulatory jd3 20:55 Acuity: ALEX 3 jd3 Historical: - Allergies: 20:56 Morphine; "makes me mean"; jd3 - Home Meds: 20:56 Lamictal 400 mg daily Oral [Active]; Iliff Carbonate Oral [Active]; jd3 - PMHx: 20:56 Bipolar disorder; Gastroenteritis; Hypertension; Kidney stones; jd3 - PSHx: 20:56 Cholecystectomy; Appendectomy; Tonsillectomy; I\\T\\D; jd3 - Immunization history:: Adult Immunizations up to date. - Social history:: Smoking status: Patient denies any tobacco usage or history of. Screenin:16 Abuse screen: Denies threats or abuse. Denies injuries from another. Nutritional mg2 screening: No deficits noted. Tuberculosis screening: No symptoms or risk factors identified. Fall Risk IV access (20 points). Assessment: 11/23 21:10 General: Appears in no apparent distress. comfortable, Behavior is calm, cooperative. mg2 Pain: Complains of pain in chest Pain radiates to left shoulder Pain began gradually, 2 hours ago. Neuro: Level of Consciousness is awake, alert, obeys commands, Oriented to person, place, time, situation. Cardiovascular: Capillary refill < 3 seconds Patient's skin is warm and dry. Cardiovascular: Reports chest pain. Respiratory: Airway is patent Respiratory effort is even, unlabored, Respiratory pattern is regular, symmetrical. GI: No signs and/or symptoms were reported involving the gastrointestinal system. : No signs and/or symptoms were reported regarding the genitourinary system. EENT: No signs and/or symptoms were reported regarding the EENT system. Derm: Skin is intact, is healthy with good turgor, Skin is pink, warm \\T\\ dry. normal. Musculoskeletal: Circulation, motion, and sensation intact. Capillary refill < 3 seconds. 11/24 22:41 Reassessment: Patient appears in no apparent distress at this time. Patient and/or mg2 family updated on plan of care and expected duration. Pain level reassessed. Patient is alert, oriented x 3, equal unlabored respirations, skin warm/dry/pink. 23:17 Reassessment: patient agreed to do repeat Trop. mg2 11/25 00:11 Reassessment: Patient appears in no apparent distress at this time. Patient and/or mg2 family updated on plan of care and expected duration. Pain level reassessed. Patient is alert, oriented x 3, equal unlabored respirations, skin warm/dry/pink. Vital Signs: 11/24 20:57 BP 126 / 78; Pulse 71; Resp 18 S; Temp 98.8(TE); Pulse Ox 98% on R/A; Weight 102.06 kg jd3 (R); Height 5 ft. 11 in. (180.34 cm) (R); Pain 8/10; 22:14 BP 120 / 78; Pulse 64; Resp 18; Pulse Ox 98% on R/A; Pain 4/10; mg2 23:17 BP 125 / 77; Pulse 71; Resp 18; Pulse Ox 100% on R/A; mg2 11/25 00:19 BP 130 / 75; Pulse 60; Resp 18; Pulse Ox 100% on R/A; mg2 11/24 20:57 Body Mass Index 31.38 (102.06 kg, 180.34 cm) jd3 ED Course: 11/24 20:42 Patient arrived in ED. ag3 20:47 Dank Sotomayor PA is PHCP. cp 20:47 Pete Jenkins MD is Attending Physician. cp 20:56 Triage completed. jd3 20:58 Will Ross, RN is Primary Nurse. mg2 20:58 Arm band placed on. EKG completed in triage. Results shown to . roopa 21:10 Inserted saline lock: 22 gauge in right forearm, using aseptic technique. Blood mg2 collected. Patient maintains SpO2 saturation greater than 95% on room air. 21:15 No provider procedures requiring assistance completed. mg2 21:17 Patient has correct armband on for positive identification. Pulse ox on. NIBP on. mg2 21:34 XRAY Chest (1 view) In Process Unspecified. EDMS 11/25 00:10 Repeat lab(s) drawn. by ct, sent to lab. mg2 01:00 IV discontinued, intact, bleeding controlled, No redness/swelling at site. Pressure mg2 dressing applied. Administered Medications: 11/24 21:14 Drug: NS 0.9% 1000 ml Route: IV; Rate: 1 bolus; Site: right forearm; mg2 22:15 Follow up: Response: No adverse reaction; IV Status: Completed infusion; IV Intake: mg2 1000ml 21:14 Drug: Aspirin Chewable Tablet 324 mg Route: PO; mg2 22:15 Follow up: Response: No adverse reaction mg2 21:14 Drug: fentaNYL (PF) 25 mcg Route: IVP; Site: right forearm; mg2 22:15 Follow up: Response: No adverse reaction mg2 22:55 Drug: TORadol - Ketorolac 15 mg Route: IVP; Site: right forearm; mg2 11/25 00:19 Follow up: Response: No adverse reaction; Marked relief of symptoms mg2 Intake: 11/24 22:15 IV: 1000ml; Total: 1000ml. mg2 Outcome: 11/25 00:51 Discharge ordered by . cp 01:00 Discharged to home ambulatory, with family. mg2 01:00 Condition: stable 01:00 Discharge instructions given to patient, family, Instructed on discharge instructions, follow up and referral plans. medication usage, Demonstrated understanding of instructions, follow-up care, medications, Prescriptions given X 2. 01:00 Patient left the ED. mg2 Signatures: Dispatcher [employer] EDNM Dank Sotomayor PA PA cp Davies, Jonathon, RN RN jd3 Gardose, Michele, FABY RN mg2 Lexie Blancas ag3
--- NOTE | 2019-11-26 00:52 | EDPHYS ---
Physician Documentation [facility] Name: Roland Cueto Jr Age: 34 yrs Sex: Male : 1985 Arrival Date: 11/25/2019 Time: 20:42 Bed 18 Private MD: ED Physician Pete Jenkins HPI: 11/24 22:00 This 34 yrs old Male presents to ER via Ambulatory with complaints of Chest cp Pain. 22:00 The patient or guardian reports chest pain that is located primarily in the substernal cp area. 22:00 The pain radiates to the left shoulder, left side of chest. cp 22:00 Associated signs and symptoms: Pertinent negatives: abdominal pain, cough, diaphoresis, cp dizziness, lower extremity pain, lower extremity swelling, palpitations, shortness of breath, syncope. The chest pain is described as sharp. Duration: The patient or guardian reports a single episode, that is still ongoing, and unchanged. 22:00 Severity of pain: in the emergency department the pain is unchanged despite home cp interventions. Historical: - Allergies: 20:56 Morphine; "makes me mean"; jd3 - Home Meds: 20:56 Lamictal 400 mg daily Oral [Active]; [place] Carbonate Oral [Active]; jd3 - PMHx: 20:56 Bipolar disorder; Gastroenteritis; Hypertension; Kidney stones; jd3 - PSHx: 20:56 Cholecystectomy; Appendectomy; Tonsillectomy; I\\T\\D; jd3 - Immunization history:: Adult Immunizations up to date. - Social history:: Smoking status: Patient denies any tobacco usage or history of. ROS: 22:05 Constitutional: Negative for body aches, chills, fever, poor PO intake. cp 22:05 Eyes: Negative for injury, pain, redness, and discharge. cp 22:05 Cardiovascular: Positive for chest pain, Negative for edema, palpitations. cp 22:05 Respiratory: Negative for cough, shortness of breath, wheezing. cp 22:05 Abdomen/GI: Negative for abdominal pain, vomiting, diarrhea, constipation. 22:05 Back: Negative for injury or acute deformity. 22:05 : Negative for urinary symptoms. 22:05 Neuro: Negative for altered mental status, dizziness, headache, weakness. 22:05 All other systems are negative. Exam: 21:05 ECG was reviewed by the Attending Physician. cp 22:10 Constitutional: The patient appears in no acute distress, alert, awake, cp non-diaphoretic, non-toxic, well developed, well nourished. 22:10 Head/Face: Normocephalic, atraumatic. cp 22:10 Eyes: Periorbital structures: appear normal, Conjunctiva: normal, no exudate, no injection, Sclera: no appreciated abnormality, Lids and lashes: appear normal, bilaterally. 22:10 ENT: External ear(s): are unremarkable, Nose: is normal, Mouth: Lips: moist, Oral mucosa: moist, Posterior pharynx: Airway: no evidence of obstruction, patent. 22:10 Neck: ROM/movement: is normal, is supple, without pain, no range of motions limitations, no nuchal rigidity. 22:10 Chest/axilla: Inspection: normal, Palpation: crepitus, is not appreciated, tenderness, that is moderate, of the anterior aspect of left upper chest and mid-sternal area, that partially reproduces the patient's complaints. 22:10 Cardiovascular: Rate: normal, Rhythm: regular, Pulses: Pulses are 2+ in right radial artery and left radial artery. Heart sounds: murmur, not appreciated, Edema: is not appreciated. 22:10 Respiratory: the patient does not display signs of respiratory distress, Respirations: normal, no use of accessory muscles, no retractions, labored breathing, is not present, Breath sounds: are clear throughout, no decreased breath sounds. 22:10 Abdomen/GI: Inspection: abdomen appears normal, Palpation: abdomen is soft and non-tender, in all quadrants. 22:10 Back: pain, that is mild, of the left scapular area and left subscapular area, ROM is normal. 22:10 Skin: no rash present. 22:10 Neuro: Orientation: to person, place \\T\\ time. Mentation: is normal, Motor: moves all fours, strength is normal. Vital Signs: 20:57 BP 126 / 78; Pulse 71; Resp 18 S; Temp 98.8(TE); Pulse Ox 98% on R/A; Weight 102.06 kg jd3 (R); Height 5 ft. 11 in. (180.34 cm) (R); Pain 8/10; 22:14 BP 120 / 78; Pulse 64; Resp 18; Pulse Ox 98% on R/A; Pain 4/10; mg2 23:17 BP 125 / 77; Pulse 71; Resp 18; Pulse Ox 100% on R/A; mg2 11/25 00:19 BP 130 / 75; Pulse 60; Resp 18; Pulse Ox 100% on R/A; mg2 11/24 20:57 Body Mass Index 31.38 (102.06 kg, 180.34 cm) jd3 MDM: 11/24 20:55 Patient medically screened. cp 22:00 Differential diagnosis: abnormal EKG, acute myocardial infarction, acute pericarditis, cp chest wall pain, cholecystitis, Cholelithiasis pancreatitis, pleurisy, pneumonia, pneumothorax, pulmonary embolus. 11/25 00:50 Data reviewed: vital signs, nurses notes, lab test result(s), EKG, radiologic studies, cp plain films. 00:50 Test interpretation: by ED physician or midlevel provider: ECG, chest xray negative for cp infiltrates. Counseling: I had a detailed discussion with the patient and/or guardian regarding: the historical points, exam findings, and any diagnostic results supporting the discharge/admit diagnosis, lab results, radiology results, to return to the emergency department if symptoms worsen or persist or if there are any questions or concerns that arise at home. Special discussion: Based on the patient's history, exam, and Dx evaluation, there is no indication for emergent intervention or inpatient Tx. It is understood by the patient/guardian that if the Sx's persist or worsen they need to return immediately for re-evaluation. 11/24 21:01 Order name: Basic Metabolic Panel; Complete Time: 22:19 cp 11/24 22:20 Interpretation: Normal except: CL 109; GFR 69. cp 11/24 21:01 Order name: CBC with Diff; Complete Time: 22:19 cp 11/24 22:20 Interpretation: Normal except: MPV 6.8; EOSINOPHIL % 5.4. cp 11/24 21:01 Order name: LFT's; Complete Time: 22:19 cp 11/24 21:01 Order name: Magnesium; Complete Time: 22:19 cp 11/24 21:01 Order name: NT PRO-BNP; Complete Time: 22:19 cp 11/24 21:01 Order name: PT-INR; Complete Time: 22:19 cp 11/24 21:01 Order name: Troponin (emerg Dept Use Only); Complete Time: 22:19 cp 11/24 22:20 Interpretation: Reviewed. cp 11/24 21:01 Order name: XRAY Chest (1 view) cp 11/24 22:21 Order name: UDS; Complete Time: 23:03 cp 11/24 23:04 Interpretation: Reviewed. cp 11/24 23:17 Order name: Troponin (emerg Dept Use Only): \\T\\ 0010; Complete Time: 00:49 mg2 11/25 00:49 Interpretation: TROPED 0.02; Reviewed. cp 11/24 23:23 Order name: Urine Dipstick--Ancillary (enter results); Complete Time: 00:08 ar5 11/25 00:08 Interpretation: Normal except: UPROT 1+. cp 11/24 21:01 Order name: EKG; Complete Time: 21:03 cp 11/24 21:01 Order name: Cardiac monitoring; Complete Time: 21:02 cp 11/24 21:01 Order name: EKG - Nurse/Tech; Complete Time: 21:02 cp 11/24 21:01 Order name: IV Saline Lock; Complete Time: 21:15 cp 11/24 21:01 Order name: Labs collected and sent; Complete Time: 21:15 cp 11/24 21:01 Order name: O2 Per Protocol; Complete Time: 21:15 cp 11/24 21:01 Order name: O2 Sat Monitoring; Complete Time: 21:15 cp 11/24 22:21 Order name: Urine Dipstick-Ancillary (obtain specimen); Complete Time: 22:41 cp EC/13 21:05 Rate is 75 beats/min. Rhythm is regular. NE interval is normal. QRS interval is normal. cp QT interval is normal. T waves are Inverted in leads III, V1. Interpreted by me. Reviewed by me. Administered Medications: 21:14 Drug: NS 0.9% 1000 ml Route: IV; Rate: 1 bolus; Site: right forearm; mg2 22:15 Follow up: Response: No adverse reaction; IV Status: Completed infusion; IV Intake: mg2 1000ml 21:14 Drug: Aspirin Chewable Tablet 324 mg Route: PO; mg2 22:15 Follow up: Response: No adverse reaction mg2 21:14 Drug: fentaNYL (PF) 25 mcg Route: IVP; Site: right forearm; mg2 22:15 Follow up: Response: No adverse reaction mg2 22:55 Drug: TORadol - Ketorolac 15 mg Route: IVP; Site: right forearm; mg2 11/25 00:19 Follow up: Response: No adverse reaction; Marked relief of symptoms mg2 Disposition: 01:17 Co-signature as Attending Physician, Pete Jenkins MD. [email or web address] Disposition: 11/26/19 00:51 Discharged to Home. Impression: Other chest pain. - Condition is Stable. - Discharge Instructions: Nonspecific Chest Pain, Aspirin and Your Heart. - Prescriptions for Protonix 40 mg Oral Tablet - take 1 tablet by ORAL route once daily; 30 tablet. Diclofenac Sodium 75 mg Oral Tablet, Delayed Release (E.C.) - take 1 tablet by ORAL route 2 times per day; 20 tablet. - Medication Reconciliation Form, Thank You Letter, Antibiotic Education, Prescription Opioid Use form. - Follow up: Private Physician; When: 1 - 2 days; Reason: Recheck today's complaints. - Problem is new. - Symptoms have improved. Signatures: Dispatcher [employer] EDMS Dank Sotomayor PA PA cp Mann Waite RN RN jd3 Will Ross RN RN mg2 Pete Jenkins MD MD [email or web address] Corrections: (The following items were deleted from the chart) 01:00 00:51 11/26/2019 00:51 Discharged to Home. Impression: Other chest pain. Condition is mg2 Stable. Forms are Medication Reconciliation Form, Thank You Letter, Antibiotic Education, Prescription Opioid Use. Follow up: Private Physician; When: 1 - 2 days; Reason: Recheck today's complaints. Problem is new. Symptoms have improved. cp
[2019-11-26 01:17] VITALS: TEMP 98.8
[2019-11-26 01:20] VITALS: O2SAT 100
[2019-11-26 01:21] VITALS: BP 130/75
--- NOTE | 2019-11-26 07:13 | EKG ---
Test Date: 2019-11-25 Test Time: 20:56:59 Music Adapter: ZEKE MEASUREMENT RESULTS: Intervals: Rate: 75 OK: 162 QRSD: 90 QT: 368 QTc: 410 [place]: P: 50 OK: 162 QRS: -52 T: 20 INTERPRETIVE STATEMENTS: Normal sinus rhythm Left axis deviation RSR' or QR pattern in V1 suggests right ventricular conduction delay Anterolateral infarct, age undetermined Abnormal ECG Compared to ECG 04/16/2019 07:14:15 RSR' in V1 or V2 now present Myocardial infarct finding now present Electronically Signed On 11-26-19 07:13:12 CDT by Rob Erazo
--- NOTE | 2019-11-26 07:22 | RAD REPORT ---
EXAM DESCRIPTION: RAD - Chest Single View - 11/25/2019 9:34 pm CLINICAL HISTORY: CHEST PAIN COMPARISON: Portable April 2019 TECHNIQUE: AP portable chest image was obtained 11/25/2019 9:34 pm . FINDINGS: Lungs are clear. Interstitial pattern matches comparison. Heart and vasculature are normal . No measurable pleural effusion and no pneumothorax. No acute bony abnormality seen. No acute aortic findings suspected. IMPRESSION: No acute cardiopulmonary process. No significant change from comparison.
== END 2019-11-26 01:00 | disposition home or self-care (01) ==
LOC: ER 20:39
DX: R07.89 Other chest pain (principal); I10 Essential (primary) hypertension; F31.9 Bipolar disorder, unspecified; Z88.5 Allergy status to narcotic agent
CPT/HCPCS: 96361; 93005; 85025; 80048; 36415; 83735; 85610; 80076; 80307 ×8; 81003; 84484 ×2; 83880; 71045; 96375; 96374; 99284; J3010; J7030

== ENCOUNTER 2024-07-06 22:57 | Emergency (ER) | payer BC, SELFPAY ==
[2024-07-07] MEDS ORDERED: NA CHLORIDE 0.9% 1,000 ML ONE (00:07)
[2024-07-07] MEDS ORDERED: MORPHINE 4 MG/ML SYR ONE ×2 (00:07→03:14)
[2024-07-07] MEDS ORDERED: ONDANSETRON 4 MG/2 ML VIAL ONE (00:07)
[2024-07-07 00:15] LABS: Absolute Basophils 0.1 K/uL (0-0.5); Absolute Eosinophils 0.4 K/uL (0-0.5); Absolute Lymphocytes (CBC) 2.1 K/uL (0.7-4.9); Absolute Monocytes 0.6 K/uL (0.1-1.3); Absolute Neutrophil 8.7 K/uL (1.8-8.0); Basophils % 0.6 % (0-1.3); Eosinophils % 3.1 % (0-4.4); Hematocrit 43.6 % (39.6-49.0); Hemoglobin 15.2 g/dL (13.6-17.9); Lymphocytes % 17.8 % (15.3-44.8); MCH 28.8 pg (27.0-35.0); MCHC 34.8 g/dL (32.0-36.0); MCV 82.7 fL (80-100); MPV 7.4 fL (7.6-11.3); Monocytes % 5.4 % (3.3-12.3); Neutrophils % 73.1 % (41.7-73.7); Nucleated Red Blood Cells % 0.3 % (0-0); Platelets 310 thou/uL (152-406); RBC Red Blood Cell Count 5.28 M/uL (4.33-5.43); Red Cell Distribution Width 13.2 % (12.1-15.2)
[2024-07-07 00:36] LABS: Albumin 3.6 g/dL (3.4-5.0); Albumin/Globulin Ratio 0.9 (1.1-1.8); Anion Gap 8.8 mEq/L (5.0-15.0); Bilirubin Total 0.3 mg/dL (0.2-1.0); Globulin 4.2 g/dL (2.3-3.5); Potassium 3.8 mEq/L (3.5-5.1); Protein, Total 7.8 g/dL (6.4-8.2)
[2024-07-07] MEDS ORDERED: droPERidol 5 MG/2 ML VIAL ONE (03:13)
--- NOTE | 2024-07-07 03:23 | RAD REPORT ---
CLINICAL HISTORY: Abd pain. COMPARISON: CT Abdomen Pelvis 05/23/2018. TECHNIQUE: CT ABDOMEN PELVIS WITH IV CONTRAST on 07/06/2024 11:14 PM CDT This exam was performed according to our departmental dose-optimization program, which includes autom ated exposure control, adjustment of the mA and/or kV according to patient size and/or use of iterative reconstruction technique. FINDINGS: Lower lungs are clear. Abdomen: The liver is normal in appearance. There is mild intra and extrahepatic biliary dilatation. Cholecystectomy was performed. The pancreas and spleen are normal in appearance. The adrenal glands and kidneys are unremarkable. Abdominal aorta is normal in course and caliber without aneurysm. There is no free air. There is no r etroperitoneal adenopathy. Pelvis: There is no bowel obstruction. Urinary bladder is unremarkable. There is no free fluid. Appen parveen is absent. Skeleton: There are no acute osseous findings. No suspicious bony lesions. IMPRESSION: No definite acute process. Electronically signed by: Kalyan Coker MD 07/07/2024 03:17 AM CDT RP Due to temporary technical issues with the PACS/[employer] reporting system, reports are being binta d by the in-house radiologist without review as a courtesy to ensure prompt reporting the interpreting radiologist is fully responsible for the content of the report. Transcribed Date/Time: 07/07/2024 3:23 AM
--- NOTE | 2024-07-07 03:47 | EDPHYS ---
Physician Documentation [facility] Name: Roland Cueto Jr Age: 39 yrs Sex: Male : 1985 Arrival Date: 07/06/2024 Time: 22:57 Bed 13 Private MD: Cristian Ramirez ED Physician Barron Dalton HPI: 07/07 00:16 This 39 yrs old Male presents to ER via Ambulatory with complaints of Abdominal Pain. sb4 00:16 The patient presents with abdominal pain that is diffuse. Onset: The symptoms/episode sb4 began/occurred just prior to arrival. The symptoms do not radiate. Associated signs and symptoms: Pertinent positives: diarrhea, nausea. The patient has not experienced similar symptoms in the past. The patient has not recently seen a physician. Historical: - PMHx: 07/06 23:15 Bipolar disorder; Gastroenteritis; Hypertension; Kidney stones; ha1 - PSHx: 07/07 00:17 Appendectomy; Cholecystectomy; sb4 - Immunization history:: Adult Immunizations up to date. - Infectious Disease History:: Denies. - Social history:: Smoking status: Patient denies any tobacco usage or history of. - Family history:: not pertinent. ROS: 00:16 Constitutional: Negative for fever, chills, and weight loss, sb4 00:16 Abdomen/GI: Positive for abdominal pain, nausea, diarrhea, 00:16 All other systems are negative, Exam: 00:16 Head/Face: Normocephalic, atraumatic. Eyes: Extra-ocular motions intact. Periorbital sb4 areas with no swelling, redness, or edema. ENT: Mucous membranes moist. Cardiovascular: Regular rate and rhythm with a normal S1 and S2. Respiratory: No increased work of breathing, no retractions or nasal flaring. Skin: Warm, dry with normal turgor. Normal color with no rashes, no lesions, and no evidence of cellulitis. 00:16 Constitutional: The patient appears alert, awake, in obvious pain, uncomfortable, 00:16 Abdomen/GI: Inspection: abdomen appears normal, Bowel sounds: normal, Palpation: abdomen is soft and non-tender, moderate abdominal tenderness, in all quadrants, Vital Signs: 07/06 23:11 BP 159 / 117; Pulse 79; Resp 20; Temp 97.5; Pulse Ox 100% ; Weight 113.4 kg; Height 5 ha1 ft. 10 in. ; Pain 11/21; 07/07 00:15 BP 137 / 88; Pulse 71; Resp 20; Pulse Ox 100% ; kj2 01:34 BP 128 / 90; Pulse 81; Resp 18; Pulse Ox 99% on R/A; Pain 7/10; rg5 02:31 BP 133 / 91; Pulse 65; Resp 18; Pulse Ox 97% on R/A; rg5 03:30 BP 148 / 75; Pulse 65; Resp 17; Pulse Ox 97% ; Pain 7/10; rg5 04:05 BP 121 / 86; Pulse 61; Resp 17; Pulse Ox 97% ; rg5 07/06 23:11 Body Mass Index 35.87 (113.40 kg, 177.8 cm) ha1 07/06 23:11 Pain Scale: Adult ha1 01:34 Pain Scale: Adult rg5 03:30 Pain Scale: Adult rg5 MDM: 07/06 23:08 Medical Screening Exam initiated sb4 07/07 03:45 Differential diagnosis: bowel obstruction, GI Bleed, Hepatitis, Irritable bowel sp4 syndrome, pancreatitis, Peritonitis. Data reviewed: vital signs, nurses notes, lab test result(s), radiologic studies, CT scan. Consideration of Admission/Observation Escalation of care including admission/observation considered. ED course: CLINICAL HISTORY: Abd pain. COMPARISON: CTAbdomen Pelvis 05/23/2018. TECHNIQUE: CTABDOMEN PELVIS WITH IV CONTRAST on 07/06/2024 11:14 PM CDT This exam was performed according to our departmental dose-optimization program, which includes automated exposure control, adjustment of the mA and/or kV according to patient size and/or use of iterative reconstruction technique. FINDINGS: Lower lungs are clear. Abdomen: The liver is normal in appearance. There is mild intra and extrahepatic biliary dilatation. Cholecystectomy was performed. The pancreas and spleen are normal in appearance. The adrenal glands and kidneys are unremarkable. Abdominal aorta is normal in course and caliber without aneurysm. There is no free air. There is no retroperitoneal adenopathy. Pelvis: There is no bowel obstruction. Urinary bladder is unremarkable. There is no free fluid. Appendix is absent. Skeleton: There are no acute osseous findings. No suspicious bony lesions. IMPRESSION: No definite acute process. . ED course: Pain was alleviated. Patient stable for discharge home. Will prescribe Bentyl, Phenergan, and Lomotil. 07/06 23:14 Order name: CBC with Diff; Complete Time: 00:41 sb4 07/06 23:14 Order name: CMP; Complete Time: 00:37 sb4 07/06 23:14 Order name: Lipase; Complete Time: 00:37 sb4 07/06 23:14 Order name: CT Abd/Pelvis - IV Contrast Only sb4 07/06 23:14 Order name: IV Saline Lock; Complete Time: 00:16 sb4 07/06 23:14 Order name: Labs collected and sent; Complete Time: 00:16 sb4 Administered Medications: 00:15 Drug: Ondansetron IVP 4 mg IVP once; over 2 minutes Route: IVP; Site: right antecubital;kj2 01:33 Follow up: Response: No adverse reaction rg5 00:15 Drug: morphine IVP or IV 4 mg IVP once over 4 mins Route: IVP; Infused Over: 4 mins; kj2 Site: right antecubital; 01:33 Follow up: Response: No adverse reaction; Pain is decreased rg5 00:15 Drug: NS 0.9% IV 1000 ml IV at 1 bolus Per protocol; to be given as a bolus over 60 kj2 minutes Route: IV; Rate: 1 bolus; Site: right antecubital; 01:30 Follow up: IV Status: Completed infusion; IV Intake: 1000ml rg5 03:18 Drug: morphine IVP or IV 4 mg IVP once over 4 mins Route: IVP; Infused Over: 4 mins; rg5 Site: right antecubital; 04:08 Follow up: Response: No adverse reaction; Pain is decreased rg5 03:18 Drug: Droperidol IVP 2.5 mg IVP once Route: IVP; Site: right antecubital; rg5 04:07 Follow up: Response: No adverse reaction; Pain is decreased rg5 Disposition: 03:46 Co-signature as Attending Physician, Barron Dalton MD I agree with the assessment sp4 and plan of care. I reviewed the patient's care provided by Advanced Practice Provider \T\ agree w/ the diagnosis \T\ care plan. I personally saw the pt \T\ performed a substantive portion of the visit, incldng all aspects of the (History/Exam/Medical Decision Making). Disposition Summary: 05/26/25 03:47 Discharge Ordered Notes: Location: Home sp4 Problem: new sp4 Symptoms: have improved sp4 Condition: Stable sp4 Diagnosis - Acute viral gastroenteritis , acute diarrheal illness sp4 Followup: sp4 - With: Barron Dalton MD - When: 7 - 10 days - Reason: Recheck today's complaints Discharge Instructions: - Discharge Summary Sheet sp4 - Viral Gastroenteritis, Adult, [id number] sp4 - Clear Liquid Diet, Adult, [id number] sp4 Forms: - Patient Portal Instructions sp4 Prescriptions: - Lomotil 2.5-0.025 mg Oral tablet - take 1 tablet ORAL route every 6 hours As needed PRN diarrhea; 30 tablet; sp4 Refills: 0, Product Selection Permitted - promethazine 25 mg Oral tablet - take 1 tablet ORAL route every 6 hours As needed PRN nausea; 30 tablet; sp4 Refills: 0, Product Selection Permitted - dicyclomine 20 mg Oral tablet - take 1 tablet ORAL route 3 times per day PRN pain; 30 tablet; Refills: 0, sp4 Product Selection Permitted Signatures: Dispatcher [employer] EDUT Cheyenne Bender RN RN ha1 Samira Luciano, PAProsperC PA-C sb4 Barron Dalton MD MD sp4 Alo Claros RN RN rg5 Tricia Moraes RN RN kj2
--- NOTE | 2024-07-07 03:47 | ER ---
Nurse's Notes [facility] Name: Roland Cueto Jr Age: 39 yrs Sex: Male : 1985 Arrival Date: 07/06/2024 Time: 22:57 Bed 13 Private MD: Cristian Ramirez Diagnosis: Acute viral gastroenteritis , acute diarrheal illness Presentation: 07/06 23:11 Chief complaint: Patient states: C/o upper right abdominal pain radiating to right ha1 side. Some nausea, no vomiting. Coronavirus screen: Vaccine status: Patient reports being unvaccinated. Ebola Screen: Patient negative for fever greater than or equal to 101.5 degrees Fahrenheit, and additional compatible Ebola Virus Disease symptoms. Initial Sepsis Screen: Does the patient meet any 2 criteria? No. Patient's initial sepsis screen is negative. Risk Assessment: Do you want to hurt yourself or someone else? Patient reports no desire to harm self or others. Onset of symptoms was July 06, 2024. 23:11 Method Of Arrival: Ambulatory ha1 23:11 Acuity: ALEX 3 ha1 Historical: - PMHx: 23:15 Bipolar disorder; Gastroenteritis; Hypertension; Kidney stones; ha1 - PSHx: 07/07 00:17 Appendectomy; Cholecystectomy; sb4 - Immunization history:: Adult Immunizations up to date. - Infectious Disease History:: Denies. - Social history:: Smoking status: Patient denies any tobacco usage or history of. - Family history:: not pertinent. Screenin:24 [facility] ED Fall Risk Assessment (Adult) History of falling in the last 3 months, kj2 including since admission No falls in past 3 months (0 pts) Confusion or Disorientation No (0 pts) Intoxicated or Sedated No (0 pts) Impaired Gait No (0 pts) Mobility Assist Device Used No (0 pt) Altered Elimination No (0 pt) Score/Fall Risk Level 0 - 2 = Low Risk Maintained a safe environment, Hourly rounding (assess needs \T\ fall precautionary measures) done. Abuse screen: Denies threats or abuse. Denies injuries from another. Nutritional screening: No deficits noted. Tuberculosis screening: No symptoms or risk factors identified. Assessment: 07/06 23:50 General: Appears uncomfortable, Behavior is cooperative. Pain: Complains of pain in kj2 abdominal Pain currently is 10 out of 10 on a pain scale. Neuro: Level of Consciousness is awake, alert, obeys commands, Oriented to person, place, time, situation. Cardiovascular: Patient's skin is warm and dry. GI: Abdomen is tender to palpation X 4 quads. : No signs and/or symptoms were reported regarding the genitourinary system. 07/07 01:37 GI: Bowel sounds present in left lower quadrant Reports lower abdominal pain, diarrhea. rg5 01:37 Reassessment: Patient and/or family updated on plan of care and expected duration. Pain rg5 level reassessed. Patient is alert, oriented x 3, equal unlabored respirations, skin warm/dry/pink. 02:32 Reassessment: Patient and/or family updated on plan of care and expected duration. Pain rg5 level reassessed. Patient is alert, oriented x 3, equal unlabored respirations, skin warm/dry/pink. 03:35 Reassessment: Patient and/or family updated on plan of care and expected duration. Pain rg5 level reassessed. Patient is alert, oriented x 3, equal unlabored respirations, skin warm/dry/pink. 04:07 Reassessment: Patient and/or family updated on plan of care and expected duration. Pain rg5 level reassessed. Patient is alert, oriented x 3, equal unlabored respirations, skin warm/dry/pink. Patient states feeling better. Patient states symptoms have improved. Vital Signs: 07/06 23:11 BP 159 / 117; Pulse 79; Resp 20; Temp 97.5; Pulse Ox 100% ; Weight 113.4 kg; Height 5 ha1 ft. 10 in. ; Pain 11/21; 07/07 00:15 BP 137 / 88; Pulse 71; Resp 20; Pulse Ox 100% ; kj2 01:34 BP 128 / 90; Pulse 81; Resp 18; Pulse Ox 99% on R/A; Pain /; rg5 02:31 BP 133 / 91; Pulse 65; Resp 18; Pulse Ox 97% on R/A; rg5 03:30 BP 148 / 75; Pulse 65; Resp 17; Pulse Ox 97% ; Pain 7/; rg5 04:05 BP 121 / 86; Pulse 61; Resp 17; Pulse Ox 97% ; rg5 07/06 23:11 Body Mass Index 35.87 (113.40 kg, 177.8 cm) ha1 07/06 23:11 Pain Scale: Adult ha1 01:34 Pain Scale: Adult rg5 03:30 Pain Scale: Adult rg5 ED Course: 07/06 22:58 Patient arrived in ED. jj6 22:59 Cristian Ramirez MD is Private Physician. jj6 23:00 [facility]ira Luciano [facility]-C [facility]. sb4 23:00 Barron Dalton MD is Attending Physician. sb4 23:15 Triage completed. ha1 23:27 Tricia Moraes, FABY is Primary Nurse. kj2 07/07 00:05 Inserted saline lock: 20 gauge in right antecubital area, using aseptic technique. kj2 Blood collected. Flushed with 10 mL NS. 00:10 Report given to FABY Quinn. kj2 00:25 Patient has correct armband on for positive identification. Bed in low position. Call kj2 light in reach. Side rails up X 1. Adult w/ patient. Provided Education on: call light. 01:00 CT Abd/Pelvis - IV Contrast Only In Process Unspecified. EDMS 01:37 No provider procedures requiring assistance completed. rg5 01:49 Warm blanket given. lp2 03:46 Barron Dalton MD is Referral Physician. sp4 04:05 IV discontinued, bleeding controlled, No redness/swelling at site. Pressure dressing rg5 applied. Administered Medications: 00:15 Drug: Ondansetron IVP 4 mg IVP once; over 2 minutes Route: IVP; Site: right antecubital;kj2 01:33 Follow up: Response: No adverse reaction rg5 00:15 Drug: morphine IVP or IV 4 mg IVP once over 4 mins Route: IVP; Infused Over: 4 mins; kj2 Site: right antecubital; 01:33 Follow up: Response: No adverse reaction; Pain is decreased rg5 00:15 Drug: NS 0.9% IV 1000 ml IV at 1 bolus Per protocol; to be given as a bolus over 60 kj2 minutes Route: IV; Rate: 1 bolus; Site: right antecubital; 01:30 Follow up: IV Status: Completed infusion; IV Intake: 1000ml rg5 03:18 Drug: morphine IVP or IV 4 mg IVP once over 4 mins Route: IVP; Infused Over: 4 mins; rg5 Site: right antecubital; 04:08 Follow up: Response: No adverse reaction; Pain is decreased rg5 03:18 Drug: Droperidol IVP 2.5 mg IVP once Route: IVP; Site: right antecubital; rg5 04:07 Follow up: Response: No adverse reaction; Pain is decreased rg5 Medication: 01:37 VIS not applicable for this client. rg5 Intake: 01:30 IV: 1000ml; Total: 1000ml. rg5 Outcome: 03:47 Discharge ordered by . sp4 04:12 Discharged to home ambulatory, rg5 04:12 Condition: stable 04:12 Discharge instructions given to patient, Instructed on discharge instructions, follow up and referral plans. Demonstrated understanding of instructions, follow-up care, Prescriptions given X 3, 04:13 Patient left the ED. rg5 Signatures: Dispatcher [employer] EDMS Esme Fernandes jj6 Cheyenne Bender RN RN ha1 Samira Luciano PA-C PA-C sb4 Barron Dalton MD MD sp4 Alo Claros RN RN rg5 Tricia Moraes RN RN kj2 Sasha Teague 2
[2024-07-07 04:17] VITALS: TEMP 97.5
[2024-07-07 04:23] VITALS: O2SAT 97
[2024-07-07 04:26] VITALS: BP 121/86
== END 2024-07-07 04:13 | disposition home or self-care (01) ==
LOC: ER 22:57
DX: A08.4 Viral intestinal infection, unspecified (principal)
CPT/HCPCS: 36415; 74177; 80053; 83690; 85025; 96361; 96374; 96375; 99284; J1790; J2405; J7030; Q9967